=== PATIENT | male | born 1980 | race Caucasian/White ===

== ENCOUNTER 2017-06-27 10:50 | Emergency (ER) | payer BC, OTHER ==
[2017-06-27 11:08] VITALS: BP 144/94
[2017-06-27] MEDS ORDERED: Sodium Chloride 0.9% 1,000 ML IV ONE (11:18)
--- NOTE | 2017-06-27 11:18 | EDM.PDOC ---
ED HPI GENERAL MEDICAL PROBLEM - General Chief Complaint: Lower Extremity Injury/Pain Stated Complaint: LEGS HURT Time Seen by Provider: 06/27/17 11:05 Source of Information: Reports: Patient History Limitations: Reports: No Limitations - History of Present Illness INITIAL COMMENTS - FREE TEXT/NARRATIVE: HISTORY AND PHYSICAL: History of present illness: [Patient comes to the emergency room complaining of bilateral leg pain redness and swelling.] Review of systems: As per history of present illness and below otherwise all systems reviewed and negative. Past medical history: As per history of present illness and as reviewed below otherwise noncontributory. Surgical history: As per history of present illness and as reviewed below otherwise noncontributory. Social history: No reported history of drug or alcohol abuse. Family history: As per history of present illness and as reviewed below otherwise noncontributory. Physical exam: HEENT: Atraumatic, normocephalic, pupils reactive, negative for conjunctival pallor or scleral icterus, mucous membranes moist, throat clear, neck supple, nontender, trachea midline. Lungs: Clear to auscultation, breath sounds equal bilaterally, chest nontender. Heart: S1S2, regular, negative for clicks, rubs, or JVD. Abdomen: Soft, nondistended, nontender. Negative for masses or hepatosplenomegaly. Negative for costovertebral tenderness. Pelvis: Stable nontender. Genitourinary: Deferred. Rectal: Deferred. Extremities: Atraumatic, negative for cords or calf pain. Neurovascular unremarkable. Neuro: Awake, alert, oriented. Cranial nerves II through XII unremarkable. Cerebellum unremarkable. Motor and sensory unremarkable throughout. Exam nonfocal. Diagnostics: [] Therapeutics: [] Impression: [] Plan: [] Definitive disposition and diagnosis as appropriate pending reevaluation and review of above. Bilateral Leg Pain Score (Numeric/FACES): 9 - Related Data Allergies Allergy/AdvReac Type Severity Reaction Status Date / Time cephalexin [From Keflex] Allergy Rash Verified 06/27/17 11:08 Home Meds: Home Meds . [No Known Home Meds] 11/06/16 [History] Past Medical History HEENT History: Reports: None Cardiovascular History: Reports: None Respiratory History: Reports: None Gastrointestinal History: Reports: None Genitourinary History: Reports: None Musculoskeletal History: Reports: Other (See Below) Other Musculoskeletal History: R shoulder traumatic dislocation Neurological History: Reports: None Psychiatric History: Reports: None Endocrine/Metabolic History: Reports: None Dermatologic History: Reports: None - Infectious Disease History Infectious Disease History: Reports: None - Past Surgical History Musculoskeletal Surgical History: Reports: Other (See Below) Social & Family History - Tobacco Use Smoking Status *Q: Light Tobacco Smoker Years of Tobacco use: 10 Packs/Tins Daily: 0.1 - Caffeine Use Caffeine Use: Reports: Coffee, Energy Drinks - Recreational Drug Use Recreational Drug Use: No Course - Vital Signs Last Recorded V/S: Last Vital Signs Temp 97.0 F 06/27/17 11:02 Pulse 94 06/27/17 11:02 Resp 20 06/27/17 11:02 BP 144/94 H 06/27/17 11:02 Pulse Ox 96 06/27/17 11:02 - Orders/Labs/Meds Orders: Active Orders 24 hr Category Date Time Status CBC WITH AUTO DIFF [HEME] Stat Lab 06/27/17 11:12 Ordered COMPREHENSIVE METABOLIC PN,CMP [CHEM] Stat Lab 06/27/17 11:12 Ordered CULTURE BLOOD [BC] Stat Lab 06/27/17 11:13 Ordered CULTURE BLOOD [BC] Stat Lab 06/27/17 11:13 Ordered LACTIC ACID,WHOLE BLOOD [BG] Stat Lab 06/27/17 11:12 Ordered UA W/MICROSCOPIC [URIN] Stat Lab 06/27/17 11:12 Uncollected Blood Culture x2 Reflex Set [OM.PC] Stat Oth 06/27/17 11:12 Ordered Departure - Discharge Information Referrals: PCP,None [Primary Care Provider] - - My Orders Last 24 Hours: My Active Orders 06/27/17 11:12 CBC WITH AUTO DIFF [HEME] Stat COMPREHENSIVE METABOLIC PN,CMP [CHEM] Stat LACTIC ACID,WHOLE BLOOD [BG] Stat UA W/MICROSCOPIC [URIN] Stat Blood Culture x2 Reflex Set [OM.PC] Stat 06/27/17 11:13 CULTURE BLOOD [BC] Stat CULTURE BLOOD [BC] Stat - Assessment/Plan Last 24 Hours: My Active Orders 06/27/17 11:12 CBC WITH AUTO DIFF [HEME] Stat COMPREHENSIVE METABOLIC PN,CMP [CHEM] Stat LACTIC ACID,WHOLE BLOOD [BG] Stat UA W/MICROSCOPIC [URIN] Stat Blood Culture x2 Reflex Set [OM.PC] Stat 06/27/17 11:13 CULTURE BLOOD [BC] Stat CULTURE BLOOD [BC] Stat
== END 2017-06-27 11:16 | disposition left against medical advice (07) ==
LOC: MW.ED 10:50 → EDUNIT# 10:50 → MW.ED 11:15
DX: Z53.21 Procedure and treatment not carried out due to patient leaving prior to being seen by health care provider (principal)

== ENCOUNTER 2017-09-15 20:13 | Inpatient (IN) | payer BC ==
[2017-09-15] MEDS ORDERED: Sodium Chloride 0.9% 1,000 ML IV ONE ×2 (20:28→21:24)
--- NOTE | 2017-09-15 20:31 | EDM.PDOC ---
ED HPI GENERAL MEDICAL PROBLEM - General Chief Complaint: Lower Extremity Injury/Pain Stated Complaint: PAIN RT LEG Time Seen by Provider: 09/15/17 20:30 Source of Information: Reports: Patient History Limitations: Reports: No Limitations - History of Present Illness INITIAL COMMENTS - FREE TEXT/NARRATIVE: History of present illness: [36-year-old male comes in complaining of wounds to bilateral lower legs. 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 This is the second or third such occasion the patient has experienced this and he attributes it directly to these boots each and every time.] Review of systems: As per history of present illness and below otherwise all systems reviewed and negative. Past medical history: As per history of present illness and as reviewed below otherwise noncontributory. Surgical history: As per history of present illness and as reviewed below otherwise noncontributory. Social history: No reported history of drug or alcohol abuse. Family history: As per history of present illness and as reviewed below otherwise noncontributory. Physical exam: HEENT: Atraumatic, normocephalic, pupils reactive, negative for conjunctival pallor or scleral icterus, mucous membranes moist, throat clear, neck supple, nontender, trachea midline. Lungs: Clear to auscultation, breath sounds equal bilaterally, chest nontender. Heart: S1S2, regular, negative for clicks, rubs, or JVD. Abdomen: Soft, nondistended, nontender. Negative for masses or hepatosplenomegaly. Negative for costovertebral tenderness. Pelvis: Stable nontender. Genitourinary: Deferred. Rectal: Deferred. Extremities: Bilateral lower extremities noted to be cellulitic, edematous and weeping. Pulses are appreciated bilaterally both DP and PT but there are in fact open areas where the skin has blistered and sloughed off. Neurovascular unremarkable. Neuro: Awake, alert, oriented. Cranial nerves II through XII unremarkable. Cerebellum unremarkable. Motor and sensory unremarkable throughout. Exam nonfocal. Spoke with Dr. Feliz who agreed the patient would be benefited from inpatient admission Diagnostics: [CBC, CMP, amylase, lipase, lactic acid] Therapeutics: [IV fluid, vancomycin 1 g] Impression: [Cellulitis bilateral lower extremities] Plan: [Admit] Definitive disposition and diagnosis as appropriate pending reevaluation and review of above. both leg Pain Score (Numeric/FACES): 9 - Related Data Allergies Allergy/AdvReac Type Severity Reaction Status Date / Time No Known Allergies Allergy Verified 09/15/17 20:21 Home Meds: Home Meds . [No Known Home Meds] 09/15/17 [History] Past Medical History - Past Health History Medical/Surgical History: Denies Medical/Surgical History Cardiovascular History: Reports: None Respiratory History: Reports: None Gastrointestinal History: Reports: Diverticulosis Other Gastrointestinal History: Diverticulitis Endocrine/Metabolic History: Reports: Obesity/BMI 30+. Denies: Diabetes, Type II, Hypothyroidism - Past Surgical History GI Surgical History: Reports: None Social & Family History - Family History Family Medical History: Noncontributory - Tobacco Use Smoking Status *Q: Current Every Day Smoker Years of Tobacco use: 3 Packs/Tins Daily: 1 Second Hand Smoke Exposure: No - Caffeine Use Caffeine Use: Reports: Coffee, Energy Drinks Caffeine Use Comment: 1 cup "every couple of days" - Alcohol Use Days Per Week of Alcohol Use: 1 Number of Drinks Per Day: 0 Total Drinks Per Week: 0 - Recreational Drug Use Recreational Drug Use: No - Living Situation & Occupation Occupation: Employed Review of Systems - Review of Systems Review Of Systems: See Below (History of present illness) ED EXAM, GENERAL - Physical Exam Exam: See Below (See history of present illness) Course - Vital Signs Last Recorded V/S: Last Vital Signs Temp 36.5 C 09/15/17 20:13 Pulse 100 09/15/17 20:13 Resp 18 09/15/17 20:13 BP 125/88 09/15/17 20:13 Pulse Ox 97 09/15/17 20:13 - Orders/Labs/Meds Orders: Active Orders 24 hr Category Date Time Status Sodium Chloride 0.9% [Normal Saline] 1,000 ml Med 09/15/17 20:28 Active IV STAT Sodium Chloride 0.9% [Normal Saline] 1,000 ml Med 09/15/17 21:24 Ordered IV STAT Vancomycin [Vancocin] 1 gm Med 09/15/17 21:24 Ordered Sodium Chloride 0.9% [Normal Saline] 250 ml IV ONETIME Medication Orders Sodium Chloride (Normal Saline) 1,000 mls @ 999 mls/hr IV STAT ONE Stop: 09/15/17 21:28 Last Admin: 09/15/17 20:40 Dose: 999 mls/hr Vancomycin HCl 1 gm/ Sodium (Chloride) 250 mls @ 250 mls/hr IV ONETIME ONE Stop: 09/15/17 22:23 Labs: Laboratory Tests 09/15/17 09/15/17 09/15/17 Range/Units 20:40 20:40 20:40 WBC 13.06 H (4.0-11.0) K/uL RBC 5.19 (4.50-5.90) M/uL Hgb 16.5 (13.0-17.0) g/dL Hct 47.8 (38.0-50.0) % MCV 92.1 (80.0-98.0) fL MCH 31.8 (27.0-32.0) pg MCHC 34.5 (31.0-37.0) g/dL RDW Std Deviation 46.2 (28.0-62.0) fl RDW Coeff of Shad 14 (11.0-15.0) % Plt Count 285 (150-400) K/uL MPV 10.10 (7.40-12.00) fL Neut % (Auto) 60.2 (48.0-80.0) % Lymph % (Auto) 22.6 (16.0-40.0) % [place] % (Auto) 11.8 (0.0-15.0) % Eos % (Auto) 5.1 (0.0-7.0) % Baso % (Auto) 0.3 (0.0-1.5) % Neut # (Auto) 7.9 H (1.4-5.7) K/uL Lymph # (Auto) 3.0 H (0.6-2.4) K/uL [place] # (Auto) 1.5 H (0.0-0.8) K/uL Eos # (Auto) 0.7 (0.0-0.7) K/uL Baso # (Auto) 0.0 (0.0-0.1) K/uL Nucleated RBC % 0.0 /100WBC Nucleated RBCs # 0 K/uL Lactate 1.4 (0.20-2.00) mmol/L Sodium 140 (136-146) mmol/L Potassium 4.0 (3.5-5.1) mmol/L Chloride 103 (98-110) mmol/L Carbon Dioxide 26 (21-31) mmol/L BUN 12 (6.0-23.0) mg/dL Creatinine 0.9 (0.6-1.5) mg/dL Est Cr Clr Drug Dosing TNP Estimated GFR (MDRD) > 60.0 ml/min Glucose 98 (60-110) mg/dL Calcium 8.8 (8.8-10.8) mg/dL Total Bilirubin 0.8 (0.1-1.5) mg/dL AST 17 (5-40) IU/L ALT 22 (8-54) IU/L Alkaline Phosphatase 79 (40-150) Total Protein 6.8 (6.0-8.0) g/dL Albumin 3.8 (3.5-5.0) g/dL Globulin 3.0 (2.0-3.5) g/dL Albumin/Globulin Ratio 1.3 (1.3-2.8) Amylase 33 (10-90) U/L Lipase 10 (7-80) U/L Meds: Medications Generic Name Dose Route Start Last Admin Trade Name Freq PRN Reason Stop Dose Admin Sodium Chloride 1,000 mls @ 999 mls/hr 09/15/17 20:28 09/15/17 20:40 Normal Saline IV 09/15/17 21:28 999 mls/hr STAT ONE Administration Vancomycin HCl 1 gm/ Sodium 250 mls @ 250 mls/hr 09/15/17 21:24 Chloride IV 09/15/17 22:23 ONETIME ONE Departure - Departure Time of Disposition: 21:25 Disposition: Admitted As Inpatient 68 Condition: Good Clinical Impression: Bilateral cellulitis of lower leg - Discharge Information Referrals: PCP,None [Primary Care Provider] - Forms: ED Department Discharge - My Orders Last 24 Hours: My Active Orders 09/15/17 20:28 Sodium Chloride 0.9% [Normal Saline] 1,000 ml IV STAT 09/15/17 21:24 Sodium Chloride 0.9% [Normal Saline] 1,000 ml IV STAT Vancomycin [Vancocin] 1 gm Sodium Chloride 0.9% [Normal Saline] 250 ml IV ONETIME - Assessment/Plan Last 24 Hours: My Active Orders 09/15/17 20:28 Sodium Chloride 0.9% [Normal Saline] 1,000 ml IV STAT 09/15/17 21:24 Sodium Chloride 0.9% [Normal Saline] 1,000 ml IV STAT Vancomycin [Vancocin] 1 gm Sodium Chloride 0.9% [Normal Saline] 250 ml IV ONETIME
[2017-09-15 21:08] LABS: CHLORIDE,CL 103 mmol/L (98-110); SODIUM,NA 140 mmol/L (136-146)
[2017-09-15] MEDS ORDERED: Ondansetron 4 MG/2 ML SDV IVPUSH ONE (21:36)
[2017-09-15] MEDS ORDERED: HYDROmorphone 2 MG/ML Syringe IVPUSH ONE (21:36)
[2017-09-15] MEDS ORDERED: Diphtheria,Pertussis(Acell),Tetanus Vaccine 0.5 ML Syringe IM ONE (21:48)
[2017-09-15] MEDS ORDERED: Temazepam 15 MG Cap PO PRN (22:37)
[2017-09-15] MEDS ORDERED: Ondansetron 4 MG/2 ML SDV IVPUSH PRN (22:37)
[2017-09-15] MEDS: Piperacillin/Tazobactam 3.375 GM in Sodium Chloride 0.9% 50 ML IV SCH (23:19)
[2017-09-16] MEDS ORDERED: Vancomycin 2 GM in Sodium Chloride 0.9% 500 ML IV SCH ×2
[2017-09-16] MEDS: Morphine 4 MG/ML Syringe IVPUSH PRN ×6 (01:48→22:52)
[2017-09-16] MEDS: Piperacillin/Tazobactam 3.375 GM in Sodium Chloride 0.9% 50 ML IV SCH ×4 (04:21→22:42)
[2017-09-16 05:47] LABS: CHLORIDE,CL 107 mmol/L (98-110); SODIUM,NA 139 mmol/L (136-146)
[2017-09-16] MEDS ORDERED: Vancomycin 1.5 GM in Sodium Chloride 0.9% 500 ML IV SCH ×4 (07:50→08:00)
[2017-09-16] MEDS ORDERED: FLU Vacc QS 2017-18 (36mos UP)/PF 60 MCG/0.5 ML Syringe IM ONE (10:00)
[2017-09-16] MEDS: Vancomycin 1.5 GM in Sodium Chloride 0.9% 500 ML IV SCH ×2 (10:40→17:40)
--- NOTE | 2017-09-16 13:15 | PCM.HP ---
H&P History of Present Illness - General Date of Service: 09/16/17 Source of Information: Patient History Limitations: Reports: No Limitations - History of Present Illness Initial Comments - Free Text/Narative: Cell 36-year-old male with no significant past medical history that presented to the emergency department combining of bilateral leg swelling and redness and discomfort. As per the patient, he tells me that he has been wearing these new leather boots at work for prolonged periods of time, he tells me that he has been wearing these for 16-18 hour shifts. He noticed some discomfort and took issues often noticed a significant amount of redness and felt he needed to get checked out. He tells me that this happened a couple months ago and it resulted in him being admitted to the hospital for IV antibiotics. He also tells me that he was given prednisone by his primary care provider afterwards that seemed to help as well with the redness. Currently, he denies any fevers, chills, nausea or vomiting. He denies any pain aside from his legs. As per the ER physician, was believed to be cellulitic and required IV antibiotics so he was admitted. ER course IV vancomycin 1 Tetanus vaccine Zofran 1 IV IV normal saline bolus 1 CBC indicates a leukocytosis both leg Pain Score (Numeric/FACES): 6 - Related Data Allergies/Adverse Reactions: Allergies Allergy/AdvReac Type Severity Reaction Status Date / Time No Known Allergies Allergy Verified 09/15/17 20:21 Home Medications: Home Meds . [No Known Home Meds] 09/15/17 [History] Past Medical History - Past Health History Medical/Surgical History: Denies Medical/Surgical History Cardiovascular History: Reports: None Respiratory History: Reports: None Gastrointestinal History: Reports: Diverticulosis Other Gastrointestinal History: Diverticulitis Endocrine/Metabolic History: Reports: Obesity/BMI 30+ Dermatologic History: Reports: Cellulitis - Past Surgical History GI Surgical History: Reports: None Social & Family History - Family History Family Medical History: Noncontributory - Tobacco Use Smoking Status *Q: Current Every Day Smoker Years of Tobacco use: 3 Packs/Tins Daily: 0.5 Used Tobacco, but Quit: No Second Hand Smoke Exposure: No - Caffeine Use Caffeine Use: Reports: Coffee, Energy Drinks, Soda Caffeine Use Comment: 1 cup "every couple of days" - Alcohol Use Days Per Week of Alcohol Use: 1 Number of Drinks Per Day: 0 Total Drinks Per Week: 0 - Recreational Drug Use Recreational Drug Use: No - Living Situation & Occupation Occupation: Employed H&P Review of Systems - Review of Systems: Review Of Systems: See Below General: Reports: No Symptoms HEENT: Reports: No Symptoms Pulmonary: Reports: No Symptoms Cardiovascular: Reports: No Symptoms Gastrointestinal: Reports: No Symptoms Genitourinary: Reports: No Symptoms Musculoskeletal: Reports: Other (See history of present illness. Denies any joint pain.) Skin: Reports: Other (See history of present illness. The rash appears to be confined to the legs bilaterally.) Psychiatric: Reports: No Symptoms Neurological: Reports: No Symptoms Hematologic/Lymphatic: Reports: No Symptoms Immunologic: Reports: No Symptoms Exam - Exam Exam: See Below - Vital Signs Vital Signs: Last Vital Signs Temp 37.6 C 09/16/17 12:03 Pulse 110 H 09/16/17 12:03 Resp 14 09/16/17 12:03 BP 121/67 09/16/17 12:03 Pulse Ox 90 L 09/16/17 12:03 Weight: 122.9 kg - Exam General: Alert, Oriented HEENT: Conjunctiva Clear, EOMI Neck: Supple, Trachea Midline Lungs: Clear to Auscultation, Normal Respiratory Effort Cardiovascular: Regular Rate, Regular Rhythm, Normal S1, Normal S2 GI/Abdominal Exam: Normal Bowel Sounds, Soft, Non-Tender, No Organomegaly, No Distention Extremities: Other (Cellulitic, erythematous, indurated lower extremity is bilaterally. There does not appear to be any active drainage. A pen line drawn by the ER physician indicates that the erythema has not spread beyond the line. There does not appear to be any abscess formation the need straining) Peripheral Pulses: 2+: Dorsalis Pedis (L), Dorsalis Pedis (R) Skin: Other (see extremities exam) Neuro Extensive - Mental Status: Alert, Oriented x3 - Patient Data Lab Results Last 24 hrs: Laboratory Results - last 24 hr 09/16/17 09/16/17 09/16/17 Range/Units 04:52 04:52 05:38 WBC 12.74 H (4.0-11.0) K/uL RBC 4.69 (4.50-5.90) M/uL Hgb 14.7 (13.0-17.0) g/dL Hct 43.9 (38.0-50.0) % MCV 93.6 (80.0-98.0) fL MCH 31.3 (27.0-32.0) pg MCHC 33.5 (31.0-37.0) g/dL RDW Std Deviation 47.1 (28.0-62.0) fl RDW Coeff of Shad 14 (11.0-15.0) % Plt Count 253 (150-400) K/uL MPV 10.40 (7.40-12.00) fL Neut % (Auto) 68.1 (48.0-80.0) % Lymph % (Auto) 15.6 L (16.0-40.0) % [place] % (Auto) 11.3 (0.0-15.0) % Eos % (Auto) 4.7 (0.0-7.0) % Baso % (Auto) 0.3 (0.0-1.5) % Neut # (Auto) 8.7 H (1.4-5.7) K/uL Lymph # (Auto) 2.0 (0.6-2.4) K/uL [place] # (Auto) 1.4 H (0.0-0.8) K/uL Eos # (Auto) 0.6 (0.0-0.7) K/uL Baso # (Auto) 0.0 (0.0-0.1) K/uL Nucleated RBC % 0.0 /100WBC Nucleated RBCs # 0 K/uL Sodium 139 (136-146) mmol/L Potassium 4.0 (3.5-5.1) mmol/L Chloride 107 (98-110) mmol/L Carbon Dioxide 24 (21-31) mmol/L BUN 10 (6.0-23.0) mg/dL Creatinine 0.8 (0.6-1.5) mg/dL Est Cr Clr Drug Dosing 121.34 mL/min Estimated GFR (MDRD) > 60.0 ml/min Glucose 98 (60-110) mg/dL POC Glucose 104 (60-110) mg/dL Calcium 7.5 L (8.8-10.8) mg/dL Result Diagrams: 09/16/17 04:52 09/16/17 04:52 *Q Meaningful Use (ADM) - VTE *Q VTE Criteria *Q: - Stroke *Q Stroke Criteria *Q: - AMI *Q AMI Criteria *Q: Problem List Initiated/Reviewed/Updated: Yes Orders Last 24hrs: Active Orders 24 hr Category Date Time Status Vaccines to be Administered [RC] PER UNIT ROUTINE Care 09/15/17 21:48 Active Regular Diet [DIET] Diet 09/16/17 Breakfast Active BASIC METABOLIC PANEL,BMP [CHEM] DAILY Lab 09/17/17 05:11 Ordered BASIC METABOLIC PANEL,BMP [CHEM] DAILY Lab 09/18/17 05:11 Ordered BASIC METABOLIC PANEL,BMP [CHEM] DAILY Lab 09/19/17 05:11 Ordered CBC WITH AUTO DIFF [HEME] DAILY Lab 09/17/17 05:11 Ordered CBC WITH AUTO DIFF [HEME] DAILY Lab 09/18/17 05:11 Ordered CBC WITH AUTO DIFF [HEME] DAILY Lab 09/19/17 05:11 Ordered CULTURE WOUND [RM] Routine Lab 09/15/17 23:00 Received CULTURE WOUND [RM] Routine Lab 09/15/17 23:00 Received VANCOMYCIN TROUGH [CHEM] Timed Lab 09/17/17 09:30 Ordered Acetaminophen [Tylenol] Med 09/16/17 09:29 Active 650 mg PO Q4H PRN Morphine Med 09/15/17 22:37 Active 4 mg IVPUSH Q1H PRN Ondansetron [Zofran] Med 09/15/17 22:37 Active 4 mg IVPUSH Q4H PRN Piperacillin/Tazobactam [Piperacil-Tazobact] 3.375 gm Med 09/15/17 23:00 Active Sodium Chloride 0.9% [Normal Saline] 50 ml IV Q6H Temazepam [Restoril] Med 09/15/17 22:37 Active 15 mg PO BEDTIME PRN Vancomycin 1.5 gm Med 09/16/17 10:00 Active Sodium Chloride 0.9% [Normal Saline] 500 ml IV Q8H Vancomycin Pharmacy to Dose [Pharmacy to Dose - Med 09/15/17 22:45 Active Vancomycin] 1 dose .XX ASDIRECTED Medication Orders Acetaminophen (Tylenol) 650 mg PO Q4H PRN PRN Reason: Fever Piperacillin Sod/Tazobactam (Sod 3.375 gm/ Sodium Chloride) 50 mls @ 100 mls/ hr IV Q6H [facility] Last Admin: 09/16/17 12:28 Dose: 100 mls/hr Infusion: 09/16/17 04:51 Dose: 100 mls/hr Admin: 09/16/17 04:21 Dose: 100 mls/hr Infusion: 09/15/17 23:50 Dose: 100 mls/hr Admin: 09/15/17 23:19 Dose: 100 mls/hr Vancomycin HCl 1.5 gm/ Sodium (Chloride) 500 mls @ 333.333 mls/hr IV Q8H [facility] Last Admin: 09/16/17 10:40 Dose: 333.333 mls/hr Morphine Sulfate (Morphine) 4 mg IVPUSH Q1H PRN PRN Reason: Pain Last Admin: 09/16/17 08:05 Dose: 4 mg Admin: 09/16/17 04:18 Dose: 4 mg Admin: 09/16/17 01:48 Dose: 4 mg Ondansetron HCl (Zofran) 4 mg IVPUSH Q4H PRN PRN Reason: Nausea/Vomiting Temazepam (Restoril) 15 mg PO BEDTIME PRN PRN Reason: Insomnia Vancomycin HCl (Pharmacy To Dose - Vancomycin) 1 dose .XX ASDIRECTED [facility] Assessment/Plan Comment:: Assessment: #1. Cellulitis of the legs bilaterally #2. Leukocytosis secondary to #1 #3. History of bilateral leg cellulitis #4. History of contact dermatitis 5. History of diverticulosis Plan: #1. Admit to the floor as an inpatient #2. Vital signs per floor routine #3. I's and O's floor routine #4. Vancomycin, Zosyn IV #5. Morphine 4 mg every hour #6. Tylenol 650 mg every 4 hours when necessary for pain and fever #7. Reevaluate tomorrow morning, CBC and BMP ordered
[2017-09-17] MEDS: Vancomycin 1.5 GM in Sodium Chloride 0.9% 500 ML IV SCH ×2 (01:41→10:40)
[2017-09-17] MEDS: Morphine 4 MG/ML Syringe IVPUSH PRN ×3 (03:47→12:32)
[2017-09-17] MEDS: Piperacillin/Tazobactam 3.375 GM in Sodium Chloride 0.9% 50 ML IV SCH ×2 (05:30→10:08)
[2017-09-17 06:33] LABS: CHLORIDE,CL 105 mmol/L (98-110); SODIUM,NA 136 mmol/L (136-146)
--- NOTE | 2017-09-17 13:43 | PCM.PN ---
- General Info Date of Service: 09/17/17 Subjective Update: 36-year-old male in service of bilateral leg cellulitis. The patient tells me that his pain has been stable. He still finds it difficult to ambulate without the use of a walker secondary to the pain. However, while in bed, the pain is stable and controlled. He denies any fevers or chills. He denies any new symptoms. He feels that the rash is getting better. - Review of Systems General: Reports: Other (See history of present illness) - Patient Data Vitals - Most Recent: Last Vital Signs Temp 36.9 C 09/17/17 12:00 Pulse 102 H 09/17/17 12:00 Resp 18 09/17/17 12:00 BP 132/67 09/17/17 12:00 Pulse Ox 91 L 09/17/17 12:00 Weight - Most Recent: 122.9 kg I&O - Last 24 Hours: Intake & Output 09/16/17 09/17/17 09/17/17 22:59 06:59 14:59 Intake Total 1050 1250 50 Output Total 1000 1050 Balance 50 200 50 Lab Results Last 24 Hours: Laboratory Results - last 24 hr 09/17/17 09/17/17 09/17/17 Range/Units 05:15 05:15 09:27 WBC 11.36 H (4.0-11.0) K/uL RBC 4.58 (4.50-5.90) M/uL Hgb 14.4 (13.0-17.0) g/dL Hct 43.0 (38.0-50.0) % MCV 93.9 (80.0-98.0) fL MCH 31.4 (27.0-32.0) pg MCHC 33.5 (31.0-37.0) g/dL RDW Std Deviation 47.7 (28.0-62.0) fl RDW Coeff of Shad 14 (11.0-15.0) % Plt Count 254 (150-400) K/uL MPV 10.40 (7.40-12.00) fL Neut % (Auto) 68.4 (48.0-80.0) % Lymph % (Auto) 16.1 (16.0-40.0) % [place] % (Auto) 11.2 (0.0-15.0) % Eos % (Auto) 3.9 (0.0-7.0) % Baso % (Auto) 0.4 (0.0-1.5) % Neut # (Auto) 7.8 H (1.4-5.7) K/uL Lymph # (Auto) 1.8 (0.6-2.4) K/uL [place] # (Auto) 1.3 H (0.0-0.8) K/uL Eos # (Auto) 0.4 (0.0-0.7) K/uL Baso # (Auto) 0.1 (0.0-0.1) K/uL Nucleated RBC % 0.0 /100WBC Nucleated RBCs # 0 K/uL Sodium 136 (136-146) mmol/L Potassium 4.3 (3.5-5.1) mmol/L Chloride 105 (98-110) mmol/L Carbon Dioxide 23 (21-31) mmol/L BUN 8 (6.0-23.0) mg/dL Creatinine 0.7 (0.6-1.5) mg/dL Est Cr Clr Drug Dosing 138.68 mL/min Estimated GFR (MDRD) > 60.0 ml/min Glucose 90 (60-110) mg/dL Calcium 7.9 L (8.8-10.8) mg/dL Vancomycin Trough 10.9 (5-15) ug/mL Nitin Results Last 24 Hours: Microbiology 09/15/17 23:00 Wound Culture - Final Leg, Right (Mrsa) Staphylococcus Aureus Skin Shama 09/15/17 23:00 Wound Culture - Final Leg, Left (Mrsa) Staphylococcus Aureus Skin Shama Med Orders - Current: Current Medications Acetaminophen (Tylenol) 650 mg PO Q4H PRN PRN Reason: Fever Piperacillin Sod/Tazobactam (Sod 3.375 gm/ Sodium Chloride) 50 mls @ 100 mls/ hr IV Q6H MARIE Last Admin: 09/17/17 10:08 Dose: 100 mls/hr Vancomycin HCl 1.5 gm/ Sodium (Chloride) 500 mls @ 333.333 mls/hr IV Q8H MARIE Last Admin: 09/17/17 10:40 Dose: 333.333 mls/hr Morphine Sulfate (Morphine) 4 mg IVPUSH Q1H PRN PRN Reason: Pain Last Admin: 09/17/17 12:32 Dose: 4 mg Ondansetron HCl (Zofran) 4 mg IVPUSH Q4H PRN PRN Reason: Nausea/Vomiting Temazepam (Restoril) 15 mg PO BEDTIME PRN PRN Reason: Insomnia Vancomycin HCl (Pharmacy To Dose - Vancomycin) 1 dose .XX ASDIRECTED [facility] Discontinued Medications Diphtheria/Tetanus/Acell Pertussis (Adacel) 0.5 ml IM .ONCE ONE Stop: 09/15/17 21:49 Last Admin: 09/15/17 21:55 Dose: 0.5 ml Hydromorphone HCl (Dilaudid) 2 mg IVPUSH ONETIME ONE Stop: 09/15/17 21:37 Last Admin: 09/15/17 21:41 Dose: 2 mg Sodium Chloride (Normal Saline) 1,000 mls @ 999 mls/hr IV STAT ONE Stop: 09/15/17 21:28 Last Admin: 09/15/17 20:40 Dose: 999 mls/hr Vancomycin HCl 1 gm/ Sodium (Chloride) 250 mls @ 250 mls/hr IV ONETIME ONE Stop: 09/15/17 22:23 Last Infusion: 09/15/17 22:40 Dose: Infused Sodium Chloride (Normal Saline) 1,000 mls @ 999 mls/hr IV STAT ONE Stop: 09/15/17 22:24 Last Infusion: 09/15/17 23:10 Dose: Infused Vancomycin HCl 1.5 gm/ Sodium (Chloride) 500 mls @ 333.333 mls/hr IV Q8H [facility] Vancomycin HCl 2 gm/ Sodium (Chloride) 500 mls @ 333.333 mls/hr IV Q8H [facility] Last Infusion: 09/16/17 03:25 Dose: Infused Vancomycin HCl 1.5 gm/ Sodium (Chloride) 500 mls @ 333.333 mls/hr IV Q8H [facility] Influenza Virus Vaccine (Pharmacy To Dose - Influenza Vaccine) 1 each IM ONETIME ONE Stop: 09/15/17 22:23 Influenza Virus Vaccine (Fluarix Quad 9479-2497) 60 mcg IM .ONCE ONE Stop: 09/16/17 10:01 Last Admin: 09/16/17 10:27 Dose: 60 mcg Ondansetron HCl (Zofran) 4 mg IVPUSH ONETIME ONE Stop: 09/15/17 21:37 Last Admin: 09/15/17 21:40 Dose: 4 mg - Exam General: Alert, Oriented Lungs: Clear to Auscultation, Normal Respiratory Effort Cardiovascular: Regular Rate, Regular Rhythm GI/Abdominal Exam: Normal Bowel Sounds, Soft, Non-Tender Skin: Other (It does appear to be a decrease in amount of erythema. No ascending erythema beyond the pen line. The wound does however appear to be cellulitic without any abscess formation.) - Problem List Review Problem List Initiated/Reviewed/Updated: Yes - My Orders Last 24 Hours: My Active Orders 09/17/17 08:57 Consult to Physical Therapy [PT Evaluation and Treatment] [CONS] Routine - Plan Plan:: Assessment: #1. Cellulitis of the legs bilaterally #2. Leukocytosis secondary to #1 #3. History of bilateral leg cellulitis #4. History of contact dermatitis 5. History of diverticulosis Plan: #1. Switch to daptomycin IV given sensitivities for wound culture. Wound culture positive for MRSA #2. Wound care management ordered for consult. We'll follow-up on the recommendations given.
[2017-09-17] MEDS ORDERED: DAPTOmycin 500 MG Vial IV SCH (13:45)
[2017-09-17] MEDS: DAPTOmycin 500 MG in Sodium Chloride 0.9% 10 ML IV SCH (14:48)
[2017-09-17] MEDS: traMADol 50 MG Tab PO PRN (15:13)
[2017-09-17] MEDS: Morphine 2 MG/ML Syringe IVPUSH PRN ×2 (19:17→22:09)
[2017-09-18] MEDS: Acetaminophen 325 MG Tab PO PRN ×2 (03:42→16:21)
[2017-09-18 06:05] LABS: CHLORIDE,CL 105 mmol/L (98-110); SODIUM,NA 139 mmol/L (136-146)
[2017-09-18] MEDS: Morphine 2 MG/ML Syringe IVPUSH PRN ×2 (08:17→14:11)
[2017-09-18] MEDS: Sodium Chloride 0.9% 1,000 ML IV SCH (11:13)
--- NOTE | 2017-09-18 12:05 | PCM.PN ---
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 When I initially went to go see this patient in the morning, he told me that he felt a lot better in terms of his rash. He tells me that his pain is under control as well. We initially talked about having him go home today. However on reassessment during morning rounds with the attending, patient had a bout of feeling hot and a temperature was checked which indicated a temperature of 100.9. Patient is also very nauseous and lightheaded. He denies any shortness of breath or chest pain or abdominal pain. He had no other symptoms. At the time of the fever blood cultures were obtained. IV Zofran was given 1 time. Patient also been started on fluids 125 mL an hour of normal saline. - Review of Systems General: Reports: Other (See history of present illness) - Patient Data Vitals - Most Recent: Last Vital Signs Temp 38.1 C 09/18/17 10:41 Pulse 109 H 09/18/17 08:00 Resp 18 09/18/17 08:00 BP 117/66 09/18/17 08:00 Pulse Ox 90 L 09/18/17 08:00 Weight - Most Recent: 122.9 kg I&O - Last 24 Hours: Intake & Output 09/17/17 09/18/17 09/18/17 22:59 06:59 14:59 Intake Total 690 800 Output Total 1075 1150 Balance -385 -350 Lab Results Last 24 Hours: Laboratory Results - last 24 hr 09/18/17 09/18/17 Range/Units 04:54 04:54 WBC 10.69 (4.0-11.0) K/uL RBC 4.60 (4.50-5.90) M/uL Hgb 14.4 (13.0-17.0) g/dL Hct 42.5 (38.0-50.0) % MCV 92.4 (80.0-98.0) fL MCH 31.3 (27.0-32.0) pg MCHC 33.9 (31.0-37.0) g/dL RDW Std Deviation 45.4 (28.0-62.0) fl RDW Coeff of Shad 14 (11.0-15.0) % Plt Count 254 (150-400) K/uL MPV 10.20 (7.40-12.00) fL Neut % (Auto) 66.0 (48.0-80.0) % Lymph % (Auto) 19.9 (16.0-40.0) % [place] % (Auto) 9.4 (0.0-15.0) % Eos % (Auto) 4.0 (0.0-7.0) % Baso % (Auto) 0.7 (0.0-1.5) % Neut # (Auto) 7.1 H (1.4-5.7) K/uL Lymph # (Auto) 2.1 (0.6-2.4) K/uL [place] # (Auto) 1.0 H (0.0-0.8) K/uL Eos # (Auto) 0.4 (0.0-0.7) K/uL Baso # (Auto) 0.1 (0.0-0.1) K/uL Nucleated RBC % 0.0 /100WBC Nucleated RBCs # 0 K/uL Sodium 139 (136-146) mmol/L Potassium 3.8 (3.5-5.1) mmol/L Chloride 105 (98-110) mmol/L Carbon Dioxide 27 (21-31) mmol/L BUN 9 (6.0-23.0) mg/dL Creatinine 0.7 (0.6-1.5) mg/dL Est Cr Clr Drug Dosing 138.68 mL/min Estimated GFR (MDRD) > 60.0 ml/min Glucose 106 (60-110) mg/dL Calcium 8.1 L (8.8-10.8) mg/dL Nitin Results Last 24 Hours: Microbiology 09/15/17 23:00 Wound Culture - Final Leg, Right (Mrsa) Staphylococcus Aureus Skin Shama 09/15/17 23:00 Wound Culture - Final Leg, Left (Mrsa) Staphylococcus Aureus Skin Shama Med Orders - Current: Current Medications Acetaminophen (Tylenol) 650 mg PO Q4H PRN PRN Reason: Fever Last Admin: 09/18/17 03:42 Dose: 650 mg Daptomycin 500 mg/ Sodium (Chloride) 10 mls @ 300 mls/hr IV Q24H MARIE Last Admin: 09/17/17 14:48 Dose: 300 mls/hr Sodium Chloride (Normal Saline) 1,000 mls @ 150 mls/hr IV STAT MARIE Last Admin: 09/18/17 11:13 Dose: 150 mls/hr Morphine Sulfate (Morphine) 2 mg IVPUSH Q2H PRN PRN Reason: Pain Last Admin: 09/18/17 08:17 Dose: 2 mg Ondansetron HCl (Zofran) 4 mg IVPUSH Q4H PRN PRN Reason: Nausea/Vomiting Last Admin: 09/18/17 09:41 Dose: 4 mg Temazepam (Restoril) 15 mg PO BEDTIME PRN PRN Reason: Insomnia Tramadol HCl (Ultram) 50 mg PO Q4H PRN PRN Reason: Pain Last Admin: 09/17/17 15:13 Dose: 50 mg Discontinued Medications Diphtheria/Tetanus/Acell Pertussis (Adacel) 0.5 ml IM .ONCE ONE Stop: 09/15/17 21:49 Last Admin: 09/15/17 21:55 Dose: 0.5 ml Hydromorphone HCl (Dilaudid) 2 mg IVPUSH ONETIME ONE Stop: 09/15/17 21:37 Last Admin: 09/15/17 21:41 Dose: 2 mg Sodium Chloride (Normal Saline) 1,000 mls @ 999 mls/hr IV STAT ONE Stop: 09/15/17 21:28 Last Admin: 09/15/17 20:40 Dose: 999 mls/hr Vancomycin HCl 1 gm/ Sodium (Chloride) 250 mls @ 250 mls/hr IV ONETIME ONE Stop: 09/15/17 22:23 Last Infusion: 09/15/17 22:40 Dose: Infused Sodium Chloride (Normal Saline) 1,000 mls @ 999 mls/hr IV STAT ONE Stop: 09/15/17 22:24 Last Infusion: 09/15/17 23:10 Dose: Infused Piperacillin Sod/Tazobactam (Sod 3.375 gm/ Sodium Chloride) 50 mls @ 100 mls/ hr IV Q6H [facility] Last Admin: 09/17/17 10:08 Dose: 100 mls/hr Vancomycin HCl 1.5 gm/ Sodium (Chloride) 500 mls @ 333.333 mls/hr IV Q8H MARIE Vancomycin HCl 2 gm/ Sodium (Chloride) 500 mls @ 333.333 mls/hr IV Q8H [facility] Last Infusion: 09/16/17 03:25 Dose: Infused Vancomycin HCl 1.5 gm/ Sodium (Chloride) 500 mls @ 333.333 mls/hr IV Q8H [facility]IE Vancomycin HCl 1.5 gm/ Sodium (Chloride) 500 mls @ 333.333 mls/hr IV Q8H [facility] Last Admin: 09/17/17 10:40 Dose: 333.333 mls/hr Influenza Virus Vaccine (Pharmacy To Dose - Influenza Vaccine) 1 each IM ONETIME ONE Stop: 09/15/17 22:23 Influenza Virus Vaccine (Fluarix Quad [id number]) 60 mcg IM .ONCE ONE Stop: 09/16/17 10:01 Last Admin: 09/16/17 10:27 Dose: 60 mcg Morphine Sulfate (Morphine) 4 mg IVPUSH Q1H PRN PRN Reason: Pain Last Admin: 09/17/17 12:32 Dose: 4 mg Ondansetron HCl (Zofran) 4 mg IVPUSH ONETIME ONE Stop: 09/15/17 21:37 Last Admin: 09/15/17 21:40 Dose: 4 mg Vancomycin HCl (Pharmacy To Dose - Vancomycin) 1 dose .XX ASDIRECTED [facility] - Exam General: Alert, Oriented Lungs: Clear to Auscultation, Normal Respiratory Effort Cardiovascular: Regular Rate, Regular Rhythm GI/Abdominal Exam: Normal Bowel Sounds, Soft, Non-Tender Extremities: Other (Swelling appears to be decreasing. The Aquasol does appear to be helping with the healing process. The erythema is now less than it was before. No abscess formation.) Skin: Other (C extremities exam) Wound/Incisions: Healing Well, Dressing Dry and Intact - Problem List Review Problem List Initiated/Reviewed/Updated: Yes - My Orders Last 24 Hours: My Active Orders 09/17/17 15:06 Morphine 2 mg IVPUSH Q2H PRN traMADol [Ultram] 50 mg PO Q4H PRN 09/18/17 10:36 Ready for Discharge [RC] PER UNIT ROUTINE 09/18/17 10:44 Blood Culture x2 Reflex Set [OM.PC] Stat 09/18/17 10:45 Sodium Chloride 0.9% [Normal Saline] 1,000 ml IV STAT 09/18/17 10:52 CULTURE BLOOD [BC] Stat CULTURE BLOOD [BC] Stat - Plan Plan:: Assessment: #1. Cellulitis of the legs bilaterally #2. Leukocytosis secondary to #1 resolved #3. History of bilateral leg cellulitis #4. History of contact dermatitis 5. History of diverticulosis Plan: #1. Switch to daptomycin IV given sensitivities for wound culture. Wound culture positive for MRSA #2. Wound care management ordered for consult. Currently has Aquasol dressing along with a gauze wrapped around his legs. We'll send him home on this as well. #3. Given his new symptoms of nausea and fever, all reassess him today and continue to monitor. We'll see how he is doing tomorrow morning. We'll continue the IV daptomycin for now. Follow up on blood cultures. #4. IV normal saline 125 mL an hour
--- NOTE | 2017-09-18 13:23 | CR ---
EXAMINATION: Two-view chest (PA and Lateral views). HISTORY: Hypoxia. FINDINGS: The trachea is midline. The cardiomediastinal silhouette is within normal limits. There is consolidat ion noted within the left lung base. No pleural effusion or pneumothorax. Osseous structures appear unremarkable. IMPRESSION: Left basilar pneumonia.
[2017-09-18] MEDS ORDERED: Iopamidol 755 MG/ML 500 ML Multipack Bottle IVPUSH STA (13:42)
[2017-09-18] MEDS ORDERED: Enoxaparin 150 MG/1 ML Syringe SUBCUT STA (13:42)
[2017-09-18] MEDS: DAPTOmycin 500 MG in Sodium Chloride 0.9% 10 ML IV SCH (14:01)
--- NOTE | 2017-09-18 14:10 | CT ---
EXAMINATION: CTA chest HISTORY: Hypoxia COMPARISON: Chest radiograph from the same day TECHNIQUE: Axial CT images obtained through the chest following the administration of 50 mL of Isovue -370 in the left antecubital fossa. Coronal and sagittal reconstructions obtained. FINDINGS: There is consolidation within the lungs bilaterally most prominent within the lung bases. N o significant pleural effusion. No pneumothorax. The heart is normal in size without a pericardial ef fusion. Nonpathologically enlarged hilar and mediastinal lymph nodes are noted, likely reactive. The thoracic aorta is normal in caliber. The main pulmonary arteries are patent. No pulmonary embolism id entified. No axillary lymphadenopathy. The central airways are clear. The visualized images of the up per abdomen appear normal. Trace bilateral gynecomastia. No suspicious osseous abnormalities identified. IMPRESSION: 1. Consolidation within the lungs bilaterally most prominent within the lung bases, most consistent w ith pneumonia. 2. No pulmonary embolism identified.
[2017-09-18] MEDS: Levofloxacin/Dextrose 5%-Water 750 MG in Premix Bag 1 BAG IV SCH (14:26)
[2017-09-18] MEDS ORDERED: Enoxaparin 40 MG/0.4 ML Syringe SUBCUT SCH (14:30)
[2017-09-18] MEDS ORDERED: Piperacillin/Tazobactam 4.5 GM in Sodium Chloride 0.9% 100 ML IV SCH (16:00)
[2017-09-18] MEDS: Piperacillin/Tazobactam 4.5 GM in Sodium Chloride 0.9% 100 ML IV SCH ×2 (16:21→21:31)
[2017-09-18] MEDS: Vancomycin 1.75 GM in Sodium Chloride 0.9% 500 ML IV SCH (16:57)
[2017-09-18] MEDS: Albuterol/Ipratropium 3.0-0.5 MG/3 ML Neb Soln NEB PRN (21:27)
[2017-09-19] MEDS: Sodium Chloride 0.9% 1,000 ML IV SCH (00:14)
[2017-09-19] MEDS: Vancomycin 1.75 GM in Sodium Chloride 0.9% 500 ML IV SCH ×3 (00:14→16:31)
[2017-09-19] MEDS: Morphine 2 MG/ML Syringe IVPUSH PRN ×6 (02:12→23:37)
[2017-09-19] MEDS: Albuterol/Ipratropium 3.0-0.5 MG/3 ML Neb Soln NEB PRN ×5 (03:30→23:35)
[2017-09-19] MEDS: Piperacillin/Tazobactam 4.5 GM in Sodium Chloride 0.9% 100 ML IV SCH ×4 (03:34→21:20)
[2017-09-19 06:06] LABS: CHLORIDE,CL 103 mmol/L (98-110); SODIUM,NA 138 mmol/L (136-146)
[2017-09-19] MEDS: Acetaminophen 325 MG Tab PO PRN ×3 (06:25→23:35)
[2017-09-19] MEDS ORDERED: Sodium Chloride 0.9% 1,000 ML IV SCH (09:30)
--- NOTE | 2017-09-19 11:09 | CR ---
EXAMINATION: Two-view chest (PA and Lateral views). HISTORY: Pneumonia. FINDINGS: The trachea is midline. There are low lung volumes. Bilateral pulmonary infiltrates are noted, likely increasing however exacerbated by low lung volumes. No definite pleural effusion or pneumothorax. Osseous structures appear unremarkable. IMPRESSION: 1. Possibly worsening bilateral pulmonary infiltrates.
--- NOTE | 2017-09-19 13:20 | PCM.PN ---
- General Info Date of Service: 09/19/17 Subjective Update: Over last 24 hours, this patient had an episode of significant hypoxemia prior to attempted discharge. This occurred all of a sudden. CT angiography was obtained with suspicion for a possible pulmonary embolism. The CT angio was negative. Chest x-ray indicated a basilar pneumonia. He has been started on vancomycin, Zosyn, Levaquin for hospital-acquired pneumonia. Blood cultures were obtained and the patient spiked a fever. Lactate was normal. Fluids were initially started but now have been stopped. As per nursing staff, looks like his breathing status in terms of hypoxia is worsening. He was last noted to be on 5 L via nasal cannula. This talked to the patient however, he tells me that he feels better than he did last night when talking to him this morning. He tells me that he is up in his chair and he feels better when he's sitting up rather than lying down in bed. His pain is also under control. He feels that his legs are healing. Denies any chest pain, nausea or vomiting, abdominal pain , numbness or tingling. - Review of Systems General: Reports: Other (See history of present illness) - Patient Data Vitals - Most Recent: Last Vital Signs Temp 37.7 C 09/19/17 12:00 Pulse 115 H 09/19/17 12:00 Resp 20 09/19/17 12:00 BP 140/87 09/19/17 12:00 Pulse Ox 93 L 09/19/17 12:00 Weight - Most Recent: 122.9 kg I&O - Last 24 Hours: Intake & Output 09/18/17 09/19/17 09/19/17 22:59 06:59 14:59 Intake Total 2460 3062 600 Output Total 400 1150 Balance 2060 1912 600 Lab Results Last 24 Hours: Laboratory Results - last 24 hr 09/19/17 09/19/17 09/19/17 Range/Units 05:16 05:16 09:25 WBC 16.18 H (4.0-11.0) K/uL RBC 5.01 (4.50-5.90) M/uL Hgb 15.7 (13.0-17.0) g/dL Hct 46.9 (38.0-50.0) % MCV 93.6 (80.0-98.0) fL MCH 31.3 (27.0-32.0) pg MCHC 33.5 (31.0-37.0) g/dL RDW Std Deviation 46.4 (28.0-62.0) fl RDW Coeff of Shad 14 (11.0-15.0) % Plt Count 257 (150-400) K/uL MPV 10.10 (7.40-12.00) fL Neut % (Auto) 79.8 (48.0-80.0) % Lymph % (Auto) 9.8 L (16.0-40.0) % [place] % (Auto) 9.1 (0.0-15.0) % Eos % (Auto) 0.9 (0.0-7.0) % Baso % (Auto) 0.4 (0.0-1.5) % Neut # (Auto) 12.9 H (1.4-5.7) K/uL Lymph # (Auto) 1.6 (0.6-2.4) K/uL [place] # (Auto) 1.5 H (0.0-0.8) K/uL Eos # (Auto) 0.2 (0.0-0.7) K/uL Baso # (Auto) 0.1 (0.0-0.1) K/uL Nucleated RBC % 0.0 /100WBC Nucleated RBCs # 0 K/uL Lactate 1.7 (0.20-2.00) mmol/L Sodium 138 (136-146) mmol/L Potassium 4.1 (3.5-5.1) mmol/L Chloride 103 (98-110) mmol/L Carbon Dioxide 26 (21-31) mmol/L BUN 8 (6.0-23.0) mg/dL Creatinine 0.9 (0.6-1.5) mg/dL Est Cr Clr Drug Dosing 107.86 mL/min Estimated GFR (MDRD) > 60.0 ml/min Glucose 113 H (60-110) mg/dL Calcium 7.9 L (8.8-10.8) mg/dL Nitin Results Last 24 Hours: Microbiology 09/18/17 10:52 Aerobic Blood Culture - Preliminary Blood - Venous - Lab Draw NO GROWTH AFTER 1 DAY Anaerobic Blood Culture - Preliminary NO GROWTH AFTER 1 DAY 09/18/17 10:52 Aerobic Blood Culture - Preliminary Blood - Venous NO GROWTH AFTER 1 DAY Anaerobic Blood Culture - Preliminary NO GROWTH AFTER 1 DAY Med Orders - Current: Current Medications Acetaminophen (Tylenol) 650 mg PO Q4H PRN PRN Reason: Fever Last Admin: 09/19/17 06:25 Dose: 650 mg Albuterol/Ipratropium (Duoneb 3.0-0.5 Mg/3 Ml) 3 ml NEB Q4HRRT PRN PRN Reason: Wheezing Last Admin: 09/19/17 08:22 Dose: 3 ml Enoxaparin Sodium (Lovenox) 40 mg SUBCUT Q24H MARIE Levofloxacin/Dextrose 750 mg/ (Premix) 150 mls @ 100 mls/hr IV Q24H [facility] Last Admin: 09/18/17 14:26 Dose: 100 mls/hr Vancomycin HCl 1.75 gm/ Sodium (Chloride) 500 mls @ 250 mls/hr IV Q8H [facility] Last Admin: 09/19/17 08:05 Dose: 250 mls/hr Piperacillin Sod/Tazobactam (Sod 4.5 gm/ Sodium Chloride) 100 mls @ 200 mls/hr IV Q6H [facility] Last Admin: 09/19/17 09:43 Dose: 200 mls/hr Morphine Sulfate (Morphine) 2 mg IVPUSH Q2H PRN PRN Reason: Pain Last Admin: 09/19/17 12:49 Dose: 2 mg Ondansetron HCl (Zofran) 4 mg IVPUSH Q4H PRN PRN Reason: Nausea/Vomiting Last Admin: 09/18/17 09:41 Dose: 4 mg Temazepam (Restoril) 15 mg PO BEDTIME PRN PRN Reason: Insomnia Tramadol HCl (Ultram) 50 mg PO Q4H PRN PRN Reason: Pain Last Admin: 09/17/17 15:13 Dose: 50 mg Vancomycin HCl (Pharmacy To Dose - Vancomycin) 1 dose .XX ASDIRECTED [facility] Discontinued Medications Diphtheria/Tetanus/Acell Pertussis (Adacel) 0.5 ml IM .ONCE ONE Stop: 09/15/17 21:49 Last Admin: 09/15/17 21:55 Dose: 0.5 ml Enoxaparin Sodium (Lovenox) 120 mg SUBCUT ONETIME STA Stop: 09/18/17 13:43 Last Admin: 09/18/17 14:02 Dose: 120 mg Enoxaparin Sodium (Lovenox) 40 mg SUBCUT Q24H [facility] Last Admin: 09/18/17 14:43 Dose: Not Given Hydromorphone HCl (Dilaudid) 2 mg IVPUSH ONETIME ONE Stop: 09/15/17 21:37 Last Admin: 09/15/17 21:41 Dose: 2 mg Sodium Chloride (Normal Saline) 1,000 mls @ 999 mls/hr IV STAT ONE Stop: 09/15/17 21:28 Last Admin: 09/15/17 20:40 Dose: 999 mls/hr Vancomycin HCl 1 gm/ Sodium (Chloride) 250 mls @ 250 mls/hr IV ONETIME ONE Stop: 09/15/17 22:23 Last Infusion: 09/15/17 22:40 Dose: Infused Sodium Chloride (Normal Saline) 1,000 mls @ 999 mls/hr IV STAT ONE Stop: 09/15/17 22:24 Last Infusion: 09/15/17 23:10 Dose: Infused Piperacillin Sod/Tazobactam (Sod 3.375 gm/ Sodium Chloride) 50 mls @ 100 mls/ hr IV Q6H [facility] Last Admin: 09/17/17 10:08 Dose: 100 mls/hr Vancomycin HCl 1.5 gm/ Sodium (Chloride) 500 mls @ 333.333 mls/hr IV Q8H [facility]IE Vancomycin HCl 2 gm/ Sodium (Chloride) 500 mls @ 333.333 mls/hr IV Q8H [facility] Last Infusion: 09/16/17 03:25 Dose: Infused Vancomycin HCl 1.5 gm/ Sodium (Chloride) 500 mls @ 333.333 mls/hr IV Q8H [facility] Vancomycin HCl 1.5 gm/ Sodium (Chloride) 500 mls @ 333.333 mls/hr IV Q8H [facility] Last Admin: 09/17/17 10:40 Dose: 333.333 mls/hr Daptomycin 500 mg/ Sodium (Chloride) 10 mls @ 300 mls/hr IV Q24H [facility] Last Admin: 09/18/17 14:01 Dose: 300 mls/hr Sodium Chloride (Normal Saline) 1,000 mls @ 100 mls/hr IV STAT [facility] Last Infusion: 09/18/17 17:54 Dose: Infused Piperacillin Sod/Tazobactam (Sod 4.5 gm/ Sodium Chloride) 100 mls @ 200 mls/hr IV Q6H [facility] Last Admin: 09/18/17 17:20 Dose: Not Given Sodium Chloride (Normal Saline) 1,000 mls @ 100 mls/hr IV STAT [facility] Last Admin: 09/19/17 09:43 Dose: 100 mls/hr Influenza Virus Vaccine (Pharmacy To Dose - Influenza Vaccine) 1 each IM ONETIME ONE Stop: 09/15/17 22:23 Influenza Virus Vaccine (Fluarix Quad 1322-5613) 60 mcg IM .ONCE ONE Stop: 09/16/17 10:01 Last Admin: 09/16/17 10:27 Dose: 60 mcg Iopamidol (Isovue Multipack-370 (76%)) 50 ml IVPUSH ONETIME STA Stop: 09/18/17 13:43 Last Admin: 09/18/17 14:00 Dose: 50 ml Morphine Sulfate (Morphine) 4 mg IVPUSH Q1H PRN PRN Reason: Pain Last Admin: 09/17/17 12:32 Dose: 4 mg Ondansetron HCl (Zofran) 4 mg IVPUSH ONETIME ONE Stop: 09/15/17 21:37 Last Admin: 09/15/17 21:40 Dose: 4 mg Vancomycin HCl (Pharmacy To Dose - Vancomycin) 1 dose .XX ASDIRECTED [facility] - Exam Quality Assessment: Supplemental Oxygen General: Alert, Oriented Lungs: Normal Respiratory Effort, Other (Crackles appreciated on the left side. ) Cardiovascular: Regular Rate, Regular Rhythm GI/Abdominal Exam: Normal Bowel Sounds, Soft, Non-Tender Extremities: Other (Consistent with yesterday's exam showing signs of improvement. The wound appears to be dry bilaterally with no abscess formation. Legs do appear to be edematous however.) Skin: Other (see extremities exam) - Problem List Review Problem List Initiated/Reviewed/Updated: Yes - My Orders Last 24 Hours: My Active Orders 09/18/17 12:47 Chest 2V [CR] Stat 09/18/17 12:48 Albuterol/Ipratropium [DuoNeb 3.0-0.5 MG/3 ML] 3 ml NEB Q4HRRT PRN 09/18/17 12:50 RT Aerosol Therapy [RC] ASDIRECTED - Plan Plan:: Assessment: #1. Hospital-acquired pneumonia #2. Leukocytosis secondary to #1 #3. bilateral leg cellulitis #4. History of contact dermatitis 5. History of diverticulosis Plan: #1. Switch to vancomycin, Zosyn, Levaquin. Blood cultures are pending. DuoNeb ordered when necessary for shortness of breath, wheezing #2. Wound care management ordered for consult. Currently has Aquasol dressing along with a gauze wrapped around his legs. We'll send him home on this as well. #3. Repeat chest x-ray indicates a possibly worsening bilateral infiltrate. #4. Sputum culture #5. Stop IV fluids #6. Lovenox for DVT prophylaxis
[2017-09-19] MEDS: Levofloxacin/Dextrose 5%-Water 750 MG in Premix Bag 1 BAG IV SCH (14:08)
[2017-09-19] MEDS: traMADol 50 MG Tab PO PRN ×2 (14:09→18:53)
[2017-09-19] MEDS: Enoxaparin 40 MG/0.4 ML Syringe SUBCUT SCH (14:09)
[2017-09-20] MEDS ORDERED: Furosemide 40 MG/4 ML VIAL IVPUSH STA (01:27)
[2017-09-20] MEDS: Albuterol/Ipratropium 3.0-0.5 MG/3 ML Neb Soln NEB PRN ×3 (01:33→13:13)
[2017-09-20] MEDS: Vancomycin 1.75 GM in Sodium Chloride 0.9% 500 ML IV SCH ×2 (01:41→09:42)
[2017-09-20] MEDS: Piperacillin/Tazobactam 4.5 GM in Sodium Chloride 0.9% 100 ML IV SCH ×4 (03:59→22:49)
[2017-09-20] MEDS: Acetaminophen 325 MG Tab PO PRN ×2 (05:24→23:32)
[2017-09-20 09:04] LABS: CHLORIDE,CL 100 mmol/L (98-110); SODIUM,NA 136 mmol/L (136-146)
--- NOTE | 2017-09-20 09:36 | PCM.PN ---
- Review of Systems Systems Review Comment:: reports breathing is improved today, - Patient Data Vitals - Most Recent: Last Vital Signs Temp 35.8 C 09/20/17 08:08 Pulse 119 H 09/20/17 08:08 Resp 20 09/20/17 08:08 BP 113/66 09/20/17 08:08 Pulse Ox 91 L 09/20/17 08:08 Weight - Most Recent: 122.9 kg I&O - Last 24 Hours: Intake & Output 09/19/17 09/20/17 09/20/17 22:59 06:59 14:59 Intake Total 600 1300 Output Total 800 1430 Balance -200 -130 Lab Results Last 24 Hours: Laboratory Results - last 24 hr 09/20/17 09/20/17 09/20/17 Range/Units 08:30 08:30 08:30 WBC 18.28 H (4.0-11.0) K/uL RBC 4.63 (4.50-5.90) M/uL Hgb 14.7 (13.0-17.0) g/dL Hct 42.7 (38.0-50.0) % MCV 92.2 (80.0-98.0) fL MCH 31.7 (27.0-32.0) pg MCHC 34.4 (31.0-37.0) g/dL RDW Std Deviation 45.7 (28.0-62.0) fl RDW Coeff of Shad 14 (11.0-15.0) % Plt Count 252 (150-400) K/uL MPV 9.70 (7.40-12.00) fL Add Manual Diff YES Neutrophils % (Manual) 71 (48.0-80.0) % Band Neutrophils % 12 % Lymphocytes % (Manual) 14 L (16.0-40.0) % Monocytes % (Manual) 2 (0.0-15.0) % Basophils % (Manual) 1 (0.0-1.5) % Nucleated RBC % 0.0 /100WBC Absolute Seg Neuts 13.0 H (1.4-5.7) Band Neutrophils # 2.2 Lymphocytes # (Manual) 2.6 H (0.6-2.4) Monocytes # (Manual) 0.4 (0.0-0.8) Basophils # (Manual) 0.2 H (0.0-0.1) Nucleated RBCs # 0 K/uL Sodium 136 (136-146) mmol/L Potassium 4.1 (3.5-5.1) mmol/L Chloride 100 (98-110) mmol/L Carbon Dioxide 27 (21-31) mmol/L BUN 9 (6.0-23.0) mg/dL Creatinine 0.8 (0.6-1.5) mg/dL Est Cr Clr Drug Dosing 121.34 mL/min Estimated GFR (MDRD) > 60.0 ml/min Glucose 114 H (60-110) mg/dL Calcium 7.9 L (8.8-10.8) mg/dL Vancomycin Trough 12.4 (5-15) ug/mL Nitin Results Last 24 Hours: Microbiology 09/19/17 07:03 Aerobic Blood Culture - Preliminary Blood - Venous - Lab Draw NO GROWTH AFTER 1 DAY Anaerobic Blood Culture - Preliminary NO GROWTH AFTER 1 DAY 09/19/17 06:50 Aerobic Blood Culture - Preliminary Blood - Venous NO GROWTH AFTER 1 DAY Anaerobic Blood Culture - Preliminary NO GROWTH AFTER 1 DAY 09/19/17 13:30 Gram Stain - Preliminary Sputum - Expectorated 09/18/17 10:52 Aerobic Blood Culture - Preliminary Blood - Venous - Lab Draw NO GROWTH AFTER 1 DAY Anaerobic Blood Culture - Preliminary NO GROWTH AFTER 1 DAY 09/18/17 10:52 Aerobic Blood Culture - Preliminary Blood - Venous NO GROWTH AFTER 1 DAY Anaerobic Blood Culture - Preliminary NO GROWTH AFTER 1 DAY Med Orders - Current: Current Medications Acetaminophen (Tylenol) 650 mg PO Q4H PRN PRN Reason: Fever Last Admin: 09/20/17 05:24 Dose: 650 mg Albuterol/Ipratropium (Duoneb 3.0-0.5 Mg/3 Ml) 3 ml NEB Q4HRRT PRN PRN Reason: Wheezing Last Admin: 09/20/17 05:32 Dose: 3 ml Enoxaparin Sodium (Lovenox) 40 mg SUBCUT Q24H [facility] Last Admin: 09/19/17 14:09 Dose: 40 mg Levofloxacin/Dextrose 750 mg/ (Premix) 150 mls @ 100 mls/hr IV Q24H [facility] Last Admin: 09/19/17 14:08 Dose: 100 mls/hr Vancomycin HCl 1.75 gm/ Sodium (Chloride) 500 mls @ 250 mls/hr IV Q8H [facility] Last Infusion: 09/20/17 03:45 Dose: Infused Piperacillin Sod/Tazobactam (Sod 4.5 gm/ Sodium Chloride) 100 mls @ 200 mls/hr IV Q6H [facility] Last Infusion: 09/20/17 04:30 Dose: Infused Morphine Sulfate (Morphine) 2 mg IVPUSH Q2H PRN PRN Reason: Pain Last Admin: 09/19/17 23:37 Dose: 2 mg Ondansetron HCl (Zofran) 4 mg IVPUSH Q4H PRN PRN Reason: Nausea/Vomiting Last Admin: 09/18/17 09:41 Dose: 4 mg Temazepam (Restoril) 15 mg PO BEDTIME PRN PRN Reason: Insomnia Tramadol HCl (Ultram) 50 mg PO Q4H PRN PRN Reason: Pain Last Admin: 09/19/17 18:53 Dose: 50 mg Vancomycin HCl (Pharmacy To Dose - Vancomycin) 1 dose .XX ASDIRECTED [facility] Discontinued Medications Diphtheria/Tetanus/Acell Pertussis (Adacel) 0.5 ml IM .ONCE ONE Stop: 09/15/17 21:49 Last Admin: 09/15/17 21:55 Dose: 0.5 ml Enoxaparin Sodium (Lovenox) 120 mg SUBCUT ONETIME STA Stop: 09/18/17 13:43 Last Admin: 09/18/17 14:02 Dose: 120 mg Enoxaparin Sodium (Lovenox) 40 mg SUBCUT Q24H [facility] Last Admin: 09/18/17 14:43 Dose: Not Given Furosemide (Lasix) 40 mg IVPUSH NOW STA Stop: 09/20/17 01:28 Last Admin: 09/20/17 01:39 Dose: 40 mg Hydromorphone HCl (Dilaudid) 2 mg IVPUSH ONETIME ONE Stop: 09/15/17 21:37 Last Admin: 09/15/17 21:41 Dose: 2 mg Sodium Chloride (Normal Saline) 1,000 mls @ 999 mls/hr IV STAT ONE Stop: 09/15/17 21:28 Last Admin: 09/15/17 20:40 Dose: 999 mls/hr Vancomycin HCl 1 gm/ Sodium (Chloride) 250 mls @ 250 mls/hr IV ONETIME ONE Stop: 09/15/17 22:23 Last Infusion: 09/15/17 22:40 Dose: Infused Sodium Chloride (Normal Saline) 1,000 mls @ 999 mls/hr IV STAT ONE Stop: 09/15/17 22:24 Last Infusion: 09/15/17 23:10 Dose: Infused Piperacillin Sod/Tazobactam (Sod 3.375 gm/ Sodium Chloride) 50 mls @ 100 mls/ hr IV Q6H [facility] Last Admin: 09/17/17 10:08 Dose: 100 mls/hr Vancomycin HCl 1.5 gm/ Sodium (Chloride) 500 mls @ 333.333 mls/hr IV Q8H [facility] Vancomycin HCl 2 gm/ Sodium (Chloride) 500 mls @ 333.333 mls/hr IV Q8H [facility] Last Infusion: 09/16/17 03:25 Dose: Infused Vancomycin HCl 1.5 gm/ Sodium (Chloride) 500 mls @ 333.333 mls/hr IV Q8H [facility] Vancomycin HCl 1.5 gm/ Sodium (Chloride) 500 mls @ 333.333 mls/hr IV Q8H [facility] Last Admin: 09/17/17 10:40 Dose: 333.333 mls/hr Daptomycin 500 mg/ Sodium (Chloride) 10 mls @ 300 mls/hr IV Q24H [facility] Last Admin: 09/18/17 14:01 Dose: 300 mls/hr Sodium Chloride (Normal Saline) 1,000 mls @ 100 mls/hr IV STAT [facility] Last Infusion: 09/18/17 17:54 Dose: Infused Piperacillin Sod/Tazobactam (Sod 4.5 gm/ Sodium Chloride) 100 mls @ 200 mls/hr IV Q6H [facility] Last Admin: 09/18/17 17:20 Dose: Not Given Sodium Chloride (Normal Saline) 1,000 mls @ 100 mls/hr IV STAT [facility] Last Admin: 09/19/17 09:43 Dose: 100 mls/hr Influenza Virus Vaccine (Pharmacy To Dose - Influenza Vaccine) 1 each IM ONETIME ONE Stop: 09/15/17 22:23 Influenza Virus Vaccine (Fluarix Quad 8549-8282) 60 mcg IM .ONCE ONE Stop: 09/16/17 10:01 Last Admin: 09/16/17 10:27 Dose: 60 mcg Iopamidol (Isovue Multipack-370 (76%)) 50 ml IVPUSH ONETIME STA Stop: 09/18/17 13:43 Last Admin: 09/18/17 14:00 Dose: 50 ml Morphine Sulfate (Morphine) 4 mg IVPUSH Q1H PRN PRN Reason: Pain Last Admin: 09/17/17 12:32 Dose: 4 mg Ondansetron HCl (Zofran) 4 mg IVPUSH ONETIME ONE Stop: 09/15/17 21:37 Last Admin: 09/15/17 21:40 Dose: 4 mg Vancomycin HCl (Pharmacy To Dose - Vancomycin) 1 dose .XX ASDIRECTED [facility] - Exam General: Alert, Oriented Lungs: Clear to Auscultation, Normal Respiratory Effort. No: Crackles, Wheezing Cardiovascular: Regular Rate, Regular Rhythm Extremities: Pedal Edema (bilateral lower extremity rash) Neurological: No New Focal Deficit - Problem List Review Problem List Initiated/Reviewed/Updated: Yes - Plan Plan:: 36 yo male admitted with bilateral lower extremity cellulitis who has developed pneumonia HAP: continue vancomycin, zosyn, and levaquin, following cultures bilateral leg cellulitis: continue abx, wound care with aquasol with gauze wrapping
[2017-09-20] MEDS: Linezolid 600 MG in Premix Bag 1 BAG IV SCH ×2 (09:52→21:31)
[2017-09-20] MEDS: traMADol 50 MG Tab PO PRN ×3 (10:34→20:17)
[2017-09-20] MEDS: Morphine 2 MG/ML Syringe IVPUSH PRN (12:09)
[2017-09-20] MEDS: Levofloxacin/Dextrose 5%-Water 750 MG in Premix Bag 1 BAG IV SCH (14:03)
[2017-09-20] MEDS: Enoxaparin 40 MG/0.4 ML Syringe SUBCUT SCH (14:12)
[2017-09-20] MEDS ORDERED: Furosemide 40 MG/4 ML VIAL IVPUSH ONE (23:49)
[2017-09-21] MEDS: traMADol 50 MG Tab PO PRN ×2 (00:04→14:14)
[2017-09-21] MEDS: Piperacillin/Tazobactam 4.5 GM in Sodium Chloride 0.9% 100 ML IV SCH ×4 (04:43→22:03)
[2017-09-21 06:27] LABS: CHLORIDE,CL 97 mmol/L (98-110); SODIUM,NA 136 mmol/L (136-146)
[2017-09-21] MEDS: Linezolid 600 MG in Premix Bag 1 BAG IV SCH ×2 (08:57→20:55)
--- NOTE | 2017-09-21 09:25 | PCM.PN ---
- Review of Systems Systems Review Comment:: patient reports feeling better, is coughing up more phlegm. - Patient Data Vitals - Most Recent: Last Vital Signs Temp 36.6 C 09/21/17 07:39 Pulse 112 H 09/21/17 07:39 Resp 20 09/21/17 07:39 BP 138/70 09/21/17 07:39 Pulse Ox 95 09/21/17 07:39 Weight - Most Recent: 122.9 kg I&O - Last 24 Hours: Intake & Output 09/20/17 09/21/17 09/21/17 22:59 06:59 14:59 Intake Total 550 1150 Output Total 2580 Balance 550 -1430 Lab Results Last 24 Hours: Laboratory Results - last 24 hr 09/20/17 09/21/17 09/21/17 Range/Units 08:30 05:34 05:34 WBC 14.27 H (4.0-11.0) K/uL RBC 4.88 (4.50-5.90) M/uL Hgb 15.1 (13.0-17.0) g/dL Hct 45.1 (38.0-50.0) % MCV 92.4 (80.0-98.0) fL MCH 30.9 (27.0-32.0) pg MCHC 33.5 (31.0-37.0) g/dL RDW Std Deviation 45.1 (28.0-62.0) fl RDW Coeff of Shad 14 (11.0-15.0) % Plt Count 215 (150-400) K/uL MPV 10.60 (7.40-12.00) fL Neut % (Auto) 71.5 (48.0-80.0) % Lymph % (Auto) 13.7 L (16.0-40.0) % [place] % (Auto) 10.8 (0.0-15.0) % Eos % (Auto) 3.6 (0.0-7.0) % Baso % (Auto) 0.4 (0.0-1.5) % Neut # (Auto) 10.2 H (1.4-5.7) K/uL Lymph # (Auto) 2.0 (0.6-2.4) K/uL [place] # (Auto) 1.5 H (0.0-0.8) K/uL Eos # (Auto) 0.5 (0.0-0.7) K/uL Baso # (Auto) 0.1 (0.0-0.1) K/uL Neutrophils % (Manual) 71 (48.0-80.0) % Band Neutrophils % 12 % Lymphocytes % (Manual) 14 L (16.0-40.0) % Monocytes % (Manual) 2 (0.0-15.0) % Basophils % (Manual) 1 (0.0-1.5) % Absolute Seg Neuts 13.0 H (1.4-5.7) Band Neutrophils # 2.2 Lymphocytes # (Manual) 2.6 H (0.6-2.4) Monocytes # (Manual) 0.4 (0.0-0.8) Basophils # (Manual) 0.2 H (0.0-0.1) Sodium 136 (136-146) mmol/L Potassium 4.9 (3.5-5.1) mmol/L Chloride 97 L (98-110) mmol/L Carbon Dioxide 28 (21-31) mmol/L BUN 11 (6.0-23.0) mg/dL Creatinine 0.8 (0.6-1.5) mg/dL Est Cr Clr Drug Dosing 121.34 mL/min Estimated GFR (MDRD) > 60.0 ml/min Glucose 89 (60-110) mg/dL Calcium 8.2 L (8.8-10.8) mg/dL Nitin Results Last 24 Hours: Microbiology 09/19/17 13:30 Gram Stain - Final Sputum - Expectorated Sputum Culture - Final Normal Respiratory Shama 09/19/17 07:03 Aerobic Blood Culture - Preliminary Blood - Venous - Lab Draw NO GROWTH AFTER 2 DAYS Anaerobic Blood Culture - Preliminary NO GROWTH AFTER 2 DAYS 09/19/17 06:50 Aerobic Blood Culture - Preliminary Blood - Venous NO GROWTH AFTER 2 DAYS Anaerobic Blood Culture - Preliminary NO GROWTH AFTER 2 DAYS 09/18/17 10:52 Aerobic Blood Culture - Preliminary Blood - Venous - Lab Draw NO GROWTH AFTER 2 DAYS Anaerobic Blood Culture - Preliminary NO GROWTH AFTER 2 DAYS 09/18/17 10:52 Aerobic Blood Culture - Preliminary Blood - Venous NO GROWTH AFTER 2 DAYS Anaerobic Blood Culture - Preliminary NO GROWTH AFTER 2 DAYS Med Orders - Current: Current Medications Acetaminophen (Tylenol) 650 mg PO Q4H PRN PRN Reason: Fever Last Admin: 09/20/17 23:32 Dose: 650 mg Albuterol/Ipratropium (Duoneb 3.0-0.5 Mg/3 Ml) 3 ml NEB Q4HRRT PRN PRN Reason: Wheezing Last Admin: 09/20/17 13:13 Dose: 3 ml Enoxaparin Sodium (Lovenox) 40 mg SUBCUT Q24H [facility] Last Admin: 09/20/17 14:12 Dose: 40 mg Levofloxacin/Dextrose 750 mg/ (Premix) 150 mls @ 100 mls/hr IV Q24H [facility] Last Admin: 09/20/17 14:03 Dose: 100 mls/hr Piperacillin Sod/Tazobactam (Sod 4.5 gm/ Sodium Chloride) 100 mls @ 200 mls/hr IV Q6H [facility] Last Admin: 09/21/17 04:43 Dose: 200 mls/hr Linezolid 600 mg/ Premix 300 mls @ 300 mls/hr IV Q12H [facility] Last Admin: 09/21/17 08:57 Dose: 300 mls/hr Ibuprofen (Motrin) 400 mg PO Q6H PRN PRN Reason: Pain Morphine Sulfate (Morphine) 2 mg IVPUSH Q2H PRN PRN Reason: Pain Last Admin: 09/20/17 12:09 Dose: 2 mg Ondansetron HCl (Zofran) 4 mg IVPUSH Q4H PRN PRN Reason: Nausea/Vomiting Last Admin: 09/18/17 09:41 Dose: 4 mg Temazepam (Restoril) 15 mg PO BEDTIME PRN PRN Reason: Insomnia Tramadol HCl (Ultram) 50 mg PO Q4H PRN PRN Reason: Pain Last Admin: 09/21/17 00:04 Dose: 50 mg Discontinued Medications Diphtheria/Tetanus/Acell Pertussis (Adacel) 0.5 ml IM .ONCE ONE Stop: 09/15/17 21:49 Last Admin: 09/15/17 21:55 Dose: 0.5 ml Enoxaparin Sodium (Lovenox) 120 mg SUBCUT ONETIME STA Stop: 09/18/17 13:43 Last Admin: 09/18/17 14:02 Dose: 120 mg Enoxaparin Sodium (Lovenox) 40 mg SUBCUT Q24H [facility] Last Admin: 09/18/17 14:43 Dose: Not Given Furosemide (Lasix) 40 mg IVPUSH NOW STA Stop: 09/20/17 01:28 Last Admin: 09/20/17 01:39 Dose: 40 mg Furosemide (Lasix) 40 mg IVPUSH NOW ONE Stop: 09/20/17 23:50 Last Admin: 09/21/17 00:04 Dose: 40 mg Hydromorphone HCl (Dilaudid) 2 mg IVPUSH ONETIME ONE Stop: 09/15/17 21:37 Last Admin: 09/15/17 21:41 Dose: 2 mg Sodium Chloride (Normal Saline) 1,000 mls @ 999 mls/hr IV STAT ONE Stop: 09/15/17 21:28 Last Admin: 09/15/17 20:40 Dose: 999 mls/hr Vancomycin HCl 1 gm/ Sodium (Chloride) 250 mls @ 250 mls/hr IV ONETIME ONE Stop: 09/15/17 22:23 Last Infusion: 09/15/17 22:40 Dose: Infused Sodium Chloride (Normal Saline) 1,000 mls @ 999 mls/hr IV STAT ONE Stop: 09/15/17 22:24 Last Infusion: 09/15/17 23:10 Dose: Infused Piperacillin Sod/Tazobactam (Sod 3.375 gm/ Sodium Chloride) 50 mls @ 100 mls/ hr IV Q6H [facility] Last Admin: 09/17/17 10:08 Dose: 100 mls/hr Vancomycin HCl 1.5 gm/ Sodium (Chloride) 500 mls @ 333.333 mls/hr IV Q8H [facility] Vancomycin HCl 2 gm/ Sodium (Chloride) 500 mls @ 333.333 mls/hr IV Q8H [facility] Last Infusion: 09/16/17 03:25 Dose: Infused Vancomycin HCl 1.5 gm/ Sodium (Chloride) 500 mls @ 333.333 mls/hr IV Q8H [facility] Vancomycin HCl 1.5 gm/ Sodium (Chloride) 500 mls @ 333.333 mls/hr IV Q8H [facility] Last Admin: 09/17/17 10:40 Dose: 333.333 mls/hr Daptomycin 500 mg/ Sodium (Chloride) 10 mls @ 300 mls/hr IV Q24H [facility] Last Admin: 09/18/17 14:01 Dose: 300 mls/hr Sodium Chloride (Normal Saline) 1,000 mls @ 100 mls/hr IV STAT [facility] Last Infusion: 09/18/17 17:54 Dose: Infused Piperacillin Sod/Tazobactam (Sod 4.5 gm/ Sodium Chloride) 100 mls @ 200 mls/hr IV Q6H [facility] Last Admin: 09/18/17 17:20 Dose: Not Given Vancomycin HCl 1.75 gm/ Sodium (Chloride) 500 mls @ 250 mls/hr IV Q8H [facility] Last Admin: 09/20/17 09:42 Dose: Not Given Sodium Chloride (Normal Saline) 1,000 mls @ 100 mls/hr IV STAT [facility] Last Admin: 09/19/17 09:43 Dose: 100 mls/hr Influenza Virus Vaccine (Pharmacy To Dose - Influenza Vaccine) 1 each IM ONETIME ONE Stop: 09/15/17 22:23 Influenza Virus Vaccine (Fluarix Quad 2777-6200) 60 mcg IM .ONCE ONE Stop: 09/16/17 10:01 Last Admin: 09/16/17 10:27 Dose: 60 mcg Iopamidol (Isovue Multipack-370 (76%)) 50 ml IVPUSH ONETIME STA Stop: 09/18/17 13:43 Last Admin: 09/18/17 14:00 Dose: 50 ml Morphine Sulfate (Morphine) 4 mg IVPUSH Q1H PRN PRN Reason: Pain Last Admin: 09/17/17 12:32 Dose: 4 mg Ondansetron HCl (Zofran) 4 mg IVPUSH ONETIME ONE Stop: 09/15/17 21:37 Last Admin: 09/15/17 21:40 Dose: 4 mg Vancomycin HCl (Pharmacy To Dose - Vancomycin) 1 dose .XX ASDIRECTED [facility] Vancomycin HCl (Pharmacy To Dose - Vancomycin) 1 dose .XX ASDIRECTED [facility] - Exam General: Alert, Oriented Lungs: Normal Respiratory Effort, Rhonchi Cardiovascular: Regular Rate, Regular Rhythm GI/Abdominal Exam: Soft, Non-Tender, No Distention Extremities: Pedal Edema (+1 pedal edema with bilateral rash that is improving) - Problem List Review Problem List Initiated/Reviewed/Updated: Yes - My Orders Last 24 Hours: My Active Orders 09/20/17 09:45 Linezolid [Zyvox] 600 mg Premix Bag 1 bag IV Q12H 09/20/17 23:07 CXR [Chest 1V Frontal] [CR] Routine 09/20/17 23:50 Ibuprofen [Motrin] 400 mg PO Q6H PRN - Plan Plan:: 36 yo male admitted with bilateral lower extremity cellulitis who has developed pneumonia HAP: continue linezolid, zosyn, and levaquin, leukocytosis is improving to 14, 270 bilateral leg cellulitis: continue antibiotics, wound care with aquasol with gauze wrapping
[2017-09-21] MEDS: Ibuprofen 400 MG Tab PO PRN (09:39)
[2017-09-21] MEDS: Levofloxacin/Dextrose 5%-Water 750 MG in Premix Bag 1 BAG IV SCH (14:16)
[2017-09-21] MEDS: Enoxaparin 40 MG/0.4 ML Syringe SUBCUT SCH (14:26)
[2017-09-22] MEDS: Piperacillin/Tazobactam 4.5 GM in Sodium Chloride 0.9% 100 ML IV SCH ×4 (04:27→22:55)
[2017-09-22] MEDS: traMADol 50 MG Tab PO PRN ×2 (05:40→16:30)
[2017-09-22 06:09] LABS: CHLORIDE,CL 102 mmol/L (98-110); SODIUM,NA 138 mmol/L (136-146)
[2017-09-22] MEDS: Linezolid 600 MG in Premix Bag 1 BAG IV SCH ×2 (08:53→21:47)
[2017-09-22] MEDS: Levofloxacin/Dextrose 5%-Water 750 MG in Premix Bag 1 BAG IV SCH (13:48)
[2017-09-22] MEDS: Enoxaparin 40 MG/0.4 ML Syringe SUBCUT SCH (13:54)
--- NOTE | 2017-09-22 15:26 | CR ---
EXAM DATE: 09/15/17 PATIENT'S AGE: 36 Patient: AMARI RAMÍREZ Facility: [place], [place] Site . Site : [id number] Study: XRay Chest [id number] 11:31:23 PM Ordering Physician: Trini Blanton Final Report: INDICATION: Shortness of breath TECHNIQUE: Chest radiograph 1 view COMPARISON: 09/19/2017 FINDINGS: Severe degradation of image quality noted due to body habitus. Mediastinum: The mediastinum is normal in appearance. The heart silhouette is normal in size and morphology. Lungs: The lung volumes are small with diffuse interstitial opacities and indistinctness of the pulmonary vessels which are likely due to pulmonary edema. No sign of pleural effusion seen. No pneumothorax is identified. A prominent skin fold is seen over the right hemithorax. Bones: Unremarkable for age. IMPRESSION: 1. The lung volumes are small with diffuse interstitial opacities and indistinctness of the pulmonary vessels which are likely due to pulmonary edema. Dictated by Marquise Sauer MD @ 09/20/2017 11:39:07 PM Dictated by: Marquise Sauer MD @ 09/20/2017 23:39:12 (Electronic Signature) Report Signed by Proxy. ZUHAIR
--- NOTE | 2017-09-22 16:43 | PCM.PN ---
- General Info Date of Service: 09/22/17 - Review of Systems General: Reports: No Symptoms HEENT: Reports: No Symptoms Pulmonary: Reports: No Symptoms Cardiovascular: Reports: No Symptoms Gastrointestinal: Reports: No Symptoms Genitourinary: Reports: No Symptoms Musculoskeletal: Reports: No Symptoms Skin: Reports: Other Neurological: Reports: No Symptoms Psychiatric: Reports: No Symptoms - Patient Data Vitals - Most Recent: Last Vital Signs Temp 99.0 F 09/22/17 11:48 Pulse 99 09/22/17 11:48 Resp 20 09/22/17 11:48 BP 155/72 H 09/22/17 11:48 Pulse Ox 93 L 09/22/17 11:48 Weight - Most Recent: 122.9 kg I&O - Last 24 Hours: Intake & Output 09/22/17 09/22/17 09/22/17 06:59 14:59 22:59 Intake Total 779 682 7248 Output Total 1330 875 Balance -1030 300 275 Lab Results Last 24 Hours: Laboratory Results - last 24 hr 09/22/17 09/22/17 Range/Units 05:40 05:40 WBC 11.07 H (4.0-11.0) K/uL RBC 4.57 (4.50-5.90) M/uL Hgb 14.3 (13.0-17.0) g/dL Hct 42.5 (38.0-50.0) % MCV 93.0 (80.0-98.0) fL MCH 31.3 (27.0-32.0) pg MCHC 33.6 (31.0-37.0) g/dL RDW Std Deviation 45.5 (28.0-62.0) fl RDW Coeff of Shad 14 (11.0-15.0) % Plt Count 272 (150-400) K/uL MPV 10.10 (7.40-12.00) fL Neut % (Auto) 72.0 (48.0-80.0) % Lymph % (Auto) 13.8 L (16.0-40.0) % [place] % (Auto) 7.9 (0.0-15.0) % Eos % (Auto) 5.8 (0.0-7.0) % Baso % (Auto) 0.5 (0.0-1.5) % Neut # (Auto) 8.0 H (1.4-5.7) K/uL Lymph # (Auto) 1.5 (0.6-2.4) K/uL [place] # (Auto) 0.9 H (0.0-0.8) K/uL Eos # (Auto) 0.6 (0.0-0.7) K/uL Baso # (Auto) 0.1 (0.0-0.1) K/uL Nucleated RBC % 0.0 /100WBC Nucleated RBCs # 0 K/uL Sodium 138 (136-146) mmol/L Potassium 4.2 (3.5-5.1) mmol/L Chloride 102 (98-110) mmol/L Carbon Dioxide 27 (21-31) mmol/L BUN 12 (6.0-23.0) mg/dL Creatinine 0.8 (0.6-1.5) mg/dL Est Cr Clr Drug Dosing 121.34 mL/min Estimated GFR (MDRD) > 60.0 ml/min Glucose 92 (60-110) mg/dL Calcium 8.4 L (8.8-10.8) mg/dL Nitin Results Last 24 Hours: Microbiology 09/18/17 10:52 Aerobic Blood Culture - Preliminary Blood - Venous - Lab Draw NO GROWTH AFTER 4 DAYS Anaerobic Blood Culture - Preliminary NO GROWTH AFTER 4 DAYS 09/18/17 10:52 Aerobic Blood Culture - Preliminary Blood - Venous NO GROWTH AFTER 4 DAYS Anaerobic Blood Culture - Preliminary NO GROWTH AFTER 4 DAYS 09/19/17 07:03 Aerobic Blood Culture - Preliminary Blood - Venous - Lab Draw NO GROWTH AFTER 3 DAYS Anaerobic Blood Culture - Preliminary NO GROWTH AFTER 3 DAYS 09/19/17 06:50 Aerobic Blood Culture - Preliminary Blood - Venous NO GROWTH AFTER 3 DAYS Anaerobic Blood Culture - Preliminary NO GROWTH AFTER 3 DAYS Med Orders - Current: Current Medications Acetaminophen (Tylenol) 650 mg PO Q4H PRN PRN Reason: Fever Last Admin: 09/20/17 23:32 Dose: 650 mg Albuterol/Ipratropium (Duoneb 3.0-0.5 Mg/3 Ml) 3 ml NEB Q4HRRT PRN PRN Reason: Wheezing Last Admin: 09/20/17 13:13 Dose: 3 ml Enoxaparin Sodium (Lovenox) 40 mg SUBCUT Q24H [facility] Last Admin: 09/22/17 13:54 Dose: 40 mg Levofloxacin/Dextrose 750 mg/ (Premix) 150 mls @ 100 mls/hr IV Q24H [facility] Last Admin: 09/22/17 13:48 Dose: 100 mls/hr Piperacillin Sod/Tazobactam (Sod 4.5 gm/ Sodium Chloride) 100 mls @ 200 mls/hr IV Q6H [facility] Last Admin: 09/22/17 15:48 Dose: 200 mls/hr Linezolid 600 mg/ Premix 300 mls @ 300 mls/hr IV Q12H [facility] Last Admin: 09/22/17 08:53 Dose: 300 mls/hr Ibuprofen (Motrin) 400 mg PO Q6H PRN PRN Reason: Pain Last Admin: 09/21/17 09:39 Dose: 400 mg Morphine Sulfate (Morphine) 2 mg IVPUSH Q2H PRN PRN Reason: Pain Last Admin: 09/20/17 12:09 Dose: 2 mg Ondansetron HCl (Zofran) 4 mg IVPUSH Q4H PRN PRN Reason: Nausea/Vomiting Last Admin: 09/18/17 09:41 Dose: 4 mg Temazepam (Restoril) 15 mg PO BEDTIME PRN PRN Reason: Insomnia Tramadol HCl (Ultram) 50 mg PO Q4H PRN PRN Reason: Pain Last Admin: 09/22/17 16:30 Dose: 50 mg Discontinued Medications Diphtheria/Tetanus/Acell Pertussis (Adacel) 0.5 ml IM .ONCE ONE Stop: 09/15/17 21:49 Last Admin: 09/15/17 21:55 Dose: 0.5 ml Enoxaparin Sodium (Lovenox) 120 mg SUBCUT ONETIME STA Stop: 09/18/17 13:43 Last Admin: 09/18/17 14:02 Dose: 120 mg Enoxaparin Sodium (Lovenox) 40 mg SUBCUT Q24H [facility] Last Admin: 09/18/17 14:43 Dose: Not Given Furosemide (Lasix) 40 mg IVPUSH NOW STA Stop: 09/20/17 01:28 Last Admin: 09/20/17 01:39 Dose: 40 mg Furosemide (Lasix) 40 mg IVPUSH NOW ONE Stop: 09/20/17 23:50 Last Admin: 09/21/17 00:04 Dose: 40 mg Hydromorphone HCl (Dilaudid) 2 mg IVPUSH ONETIME ONE Stop: 09/15/17 21:37 Last Admin: 09/15/17 21:41 Dose: 2 mg Sodium Chloride (Normal Saline) 1,000 mls @ 999 mls/hr IV STAT ONE Stop: 09/15/17 21:28 Last Admin: 09/15/17 20:40 Dose: 999 mls/hr Vancomycin HCl 1 gm/ Sodium (Chloride) 250 mls @ 250 mls/hr IV ONETIME ONE Stop: 09/15/17 22:23 Last Infusion: 09/15/17 22:40 Dose: Infused Sodium Chloride (Normal Saline) 1,000 mls @ 999 mls/hr IV STAT ONE Stop: 09/15/17 22:24 Last Infusion: 09/15/17 23:10 Dose: Infused Piperacillin Sod/Tazobactam (Sod 3.375 gm/ Sodium Chloride) 50 mls @ 100 mls/ hr IV Q6H [facility] Last Admin: 09/17/17 10:08 Dose: 100 mls/hr Vancomycin HCl 1.5 gm/ Sodium (Chloride) 500 mls @ 333.333 mls/hr IV Q8H [facility] Vancomycin HCl 2 gm/ Sodium (Chloride) 500 mls @ 333.333 mls/hr IV Q8H [facility] Last Infusion: 09/16/17 03:25 Dose: Infused Vancomycin HCl 1.5 gm/ Sodium (Chloride) 500 mls @ 333.333 mls/hr IV Q8H [facility] Vancomycin HCl 1.5 gm/ Sodium (Chloride) 500 mls @ 333.333 mls/hr IV Q8H [facility] Last Admin: 09/17/17 10:40 Dose: 333.333 mls/hr Daptomycin 500 mg/ Sodium (Chloride) 10 mls @ 300 mls/hr IV Q24H [facility] Last Admin: 09/18/17 14:01 Dose: 300 mls/hr Sodium Chloride (Normal Saline) 1,000 mls @ 100 mls/hr IV STAT [facility] Last Infusion: 09/18/17 17:54 Dose: Infused Piperacillin Sod/Tazobactam (Sod 4.5 gm/ Sodium Chloride) 100 mls @ 200 mls/hr IV Q6H [facility] Last Admin: 09/18/17 17:20 Dose: Not Given Vancomycin HCl 1.75 gm/ Sodium (Chloride) 500 mls @ 250 mls/hr IV Q8H [facility] Last Admin: 09/20/17 09:42 Dose: Not Given Sodium Chloride (Normal Saline) 1,000 mls @ 100 mls/hr IV STAT [facility] Last Admin: 09/19/17 09:43 Dose: 100 mls/hr Influenza Virus Vaccine (Pharmacy To Dose - Influenza Vaccine) 1 each IM ONETIME ONE Stop: 09/15/17 22:23 Influenza Virus Vaccine (Fluarix Quad [id number]) 60 mcg IM .ONCE ONE Stop: 09/16/17 10:01 Last Admin: 09/16/17 10:27 Dose: 60 mcg Iopamidol (Isovue Multipack-370 (76%)) 50 ml IVPUSH ONETIME STA Stop: 09/18/17 13:43 Last Admin: 09/18/17 14:00 Dose: 50 ml Morphine Sulfate (Morphine) 4 mg IVPUSH Q1H PRN PRN Reason: Pain Last Admin: 09/17/17 12:32 Dose: 4 mg Ondansetron HCl (Zofran) 4 mg IVPUSH ONETIME ONE Stop: 09/15/17 21:37 Last Admin: 09/15/17 21:40 Dose: 4 mg Vancomycin HCl (Pharmacy To Dose - Vancomycin) 1 dose .XX ASDIRECTED [facility] Vancomycin HCl (Pharmacy To Dose - Vancomycin) 1 dose .XX ASDIRECTED [facility] - Exam General: Alert, Oriented HEENT: Pupils Equal, Pupils Reactive, EOMI Neck: Supple, Trachea Midline Lungs: Clear to Auscultation, Normal Respiratory Effort Cardiovascular: Regular Rate, Regular Rhythm GI/Abdominal Exam: Normal Bowel Sounds, Soft, Non-Tender Back Exam: Normal Inspection, Full Range of Motion Skin: Other (bilateral erythematous rash ) Neurological: No New Focal Deficit Psy/Mental Status: Alert, Normal Affect, Normal Mood - Problem List Review Problem List Initiated/Reviewed/Updated: Yes - Plan Plan:: 36 yo male admitted with bilateral lower extremity cellulitis who has developed pneumonia HAP: continue linezolid, zosyn, and levaquin, leukocytosis is improving 11.07 bilateral leg cellulitis: continue antibiotics, wound care with aquasol with gauze wrapping
[2017-09-22] MEDS: Ibuprofen 400 MG Tab PO PRN (18:37)
[2017-09-23] MEDS: Piperacillin/Tazobactam 4.5 GM in Sodium Chloride 0.9% 100 ML IV SCH ×5 (03:50→23:40)
[2017-09-23 05:51] LABS: CHLORIDE,CL 107 mmol/L (98-110); SODIUM,NA 141 mmol/L (136-146)
[2017-09-23] MEDS: Linezolid 600 MG in Premix Bag 1 BAG IV SCH ×2 (08:59→22:35)
--- NOTE | 2017-09-23 11:36 | PCM.PN ---
- General Info Date of Service: 09/23/17 Functional Status: Reports: Pain Controlled, Tolerating Diet - Review of Systems General: Reports: No Symptoms HEENT: Reports: No Symptoms Pulmonary: Reports: No Symptoms Cardiovascular: Reports: No Symptoms Gastrointestinal: Reports: No Symptoms Genitourinary: Reports: No Symptoms Musculoskeletal: Reports: No Symptoms Skin: Reports: Other (improving) Neurological: Reports: No Symptoms Psychiatric: Reports: No Symptoms - Patient Data Vitals - Most Recent: Last Vital Signs Temp 98.5 F 09/23/17 08:00 Pulse 100 09/23/17 08:00 Resp 22 H 09/23/17 08:00 BP 135/101 H 09/23/17 08:00 Pulse Ox 90 L 09/23/17 08:00 Weight - Most Recent: 122.9 kg I&O - Last 24 Hours: Intake & Output 09/22/17 09/23/17 09/23/17 22:59 06:59 14:59 Intake Total 1150 750 Output Total 875 650 Balance 275 100 Lab Results Last 24 Hours: Laboratory Results - last 24 hr 09/23/17 09/23/17 Range/Units 05:14 05:14 WBC 7.65 (4.0-11.0) K/uL RBC 4.43 L (4.50-5.90) M/uL Hgb 13.6 (13.0-17.0) g/dL Hct 41.0 (38.0-50.0) % MCV 92.6 (80.0-98.0) fL MCH 30.7 (27.0-32.0) pg MCHC 33.2 (31.0-37.0) g/dL RDW Std Deviation 44.5 (28.0-62.0) fl RDW Coeff of Shad 13 (11.0-15.0) % Plt Count 254 (150-400) K/uL MPV 9.90 (7.40-12.00) fL Neut % (Auto) 54.3 (48.0-80.0) % Lymph % (Auto) 23.4 (16.0-40.0) % [place] % (Auto) 9.4 (0.0-15.0) % Eos % (Auto) 11.9 H (0.0-7.0) % Baso % (Auto) 1.0 (0.0-1.5) % Neut # (Auto) 4.2 (1.4-5.7) K/uL Lymph # (Auto) 1.8 (0.6-2.4) K/uL [place] # (Auto) 0.7 (0.0-0.8) K/uL Eos # (Auto) 0.9 H (0.0-0.7) K/uL Baso # (Auto) 0.1 (0.0-0.1) K/uL Nucleated RBC % 0.0 /100WBC Nucleated RBCs # 0 K/uL Sodium 141 (136-146) mmol/L Potassium 3.6 (3.5-5.1) mmol/L Chloride 107 (98-110) mmol/L Carbon Dioxide 26 (21-31) mmol/L BUN 11 (6.0-23.0) mg/dL Creatinine 0.7 (0.6-1.5) mg/dL Est Cr Clr Drug Dosing 138.68 mL/min Estimated GFR (MDRD) > 60.0 ml/min Glucose 92 (60-110) mg/dL Calcium 8.0 L (8.8-10.8) mg/dL Nitin Results Last 24 Hours: Microbiology 09/19/17 07:03 Aerobic Blood Culture - Preliminary Blood - Venous - Lab Draw NO GROWTH AFTER 4 DAYS Anaerobic Blood Culture - Preliminary NO GROWTH AFTER 4 DAYS 09/19/17 06:50 Aerobic Blood Culture - Preliminary Blood - Venous NO GROWTH AFTER 4 DAYS Anaerobic Blood Culture - Preliminary NO GROWTH AFTER 4 DAYS 09/18/17 10:52 Aerobic Blood Culture - Preliminary Blood - Venous - Lab Draw NO GROWTH AFTER 4 DAYS Anaerobic Blood Culture - Preliminary NO GROWTH AFTER 4 DAYS 09/18/17 10:52 Aerobic Blood Culture - Preliminary Blood - Venous NO GROWTH AFTER 4 DAYS Anaerobic Blood Culture - Preliminary NO GROWTH AFTER 4 DAYS Med Orders - Current: Current Medications Acetaminophen (Tylenol) 650 mg PO Q4H PRN PRN Reason: Fever Last Admin: 09/20/17 23:32 Dose: 650 mg Albuterol/Ipratropium (Duoneb 3.0-0.5 Mg/3 Ml) 3 ml NEB Q4HRRT PRN PRN Reason: Wheezing Last Admin: 09/20/17 13:13 Dose: 3 ml Enoxaparin Sodium (Lovenox) 40 mg SUBCUT Q24H [facility] Last Admin: 09/22/17 13:54 Dose: 40 mg Levofloxacin/Dextrose 750 mg/ (Premix) 150 mls @ 100 mls/hr IV Q24H [facility] Last Admin: 09/22/17 13:48 Dose: 100 mls/hr Piperacillin Sod/Tazobactam (Sod 4.5 gm/ Sodium Chloride) 100 mls @ 200 mls/hr IV Q6H [facility] Last Admin: 09/23/17 10:58 Dose: 200 mls/hr Linezolid 600 mg/ Premix 300 mls @ 300 mls/hr IV Q12H [facility] Last Admin: 09/23/17 08:59 Dose: 300 mls/hr Ibuprofen (Motrin) 400 mg PO Q6H PRN PRN Reason: Pain Last Admin: 09/22/17 18:37 Dose: 400 mg Methylprednisolone Sodium Succinate (Solu-Medrol) 40 mg IVPUSH Q8H [facility] Morphine Sulfate (Morphine) 2 mg IVPUSH Q2H PRN PRN Reason: Pain Last Admin: 09/20/17 12:09 Dose: 2 mg Ondansetron HCl (Zofran) 4 mg IVPUSH Q4H PRN PRN Reason: Nausea/Vomiting Last Admin: 09/18/17 09:41 Dose: 4 mg Temazepam (Restoril) 15 mg PO BEDTIME PRN PRN Reason: Insomnia Tramadol HCl (Ultram) 50 mg PO Q4H PRN PRN Reason: Pain Last Admin: 09/22/17 16:30 Dose: 50 mg Discontinued Medications Diphtheria/Tetanus/Acell Pertussis (Adacel) 0.5 ml IM .ONCE ONE Stop: 09/15/17 21:49 Last Admin: 09/15/17 21:55 Dose: 0.5 ml Enoxaparin Sodium (Lovenox) 120 mg SUBCUT ONETIME STA Stop: 09/18/17 13:43 Last Admin: 09/18/17 14:02 Dose: 120 mg Enoxaparin Sodium (Lovenox) 40 mg SUBCUT Q24H [facility] Last Admin: 09/18/17 14:43 Dose: Not Given Furosemide (Lasix) 40 mg IVPUSH NOW STA Stop: 09/20/17 01:28 Last Admin: 09/20/17 01:39 Dose: 40 mg Furosemide (Lasix) 40 mg IVPUSH NOW ONE Stop: 09/20/17 23:50 Last Admin: 09/21/17 00:04 Dose: 40 mg Hydromorphone HCl (Dilaudid) 2 mg IVPUSH ONETIME ONE Stop: 09/15/17 21:37 Last Admin: 09/15/17 21:41 Dose: 2 mg Sodium Chloride (Normal Saline) 1,000 mls @ 999 mls/hr IV STAT ONE Stop: 09/15/17 21:28 Last Admin: 09/15/17 20:40 Dose: 999 mls/hr Vancomycin HCl 1 gm/ Sodium (Chloride) 250 mls @ 250 mls/hr IV ONETIME ONE Stop: 09/15/17 22:23 Last Infusion: 09/15/17 22:40 Dose: Infused Sodium Chloride (Normal Saline) 1,000 mls @ 999 mls/hr IV STAT ONE Stop: 09/15/17 22:24 Last Infusion: 09/15/17 23:10 Dose: Infused Piperacillin Sod/Tazobactam (Sod 3.375 gm/ Sodium Chloride) 50 mls @ 100 mls/ hr IV Q6H [facility] Last Admin: 09/17/17 10:08 Dose: 100 mls/hr Vancomycin HCl 1.5 gm/ Sodium (Chloride) 500 mls @ 333.333 mls/hr IV Q8H [facility] Vancomycin HCl 2 gm/ Sodium (Chloride) 500 mls @ 333.333 mls/hr IV Q8H [facility] Last Infusion: 09/16/17 03:25 Dose: Infused Vancomycin HCl 1.5 gm/ Sodium (Chloride) 500 mls @ 333.333 mls/hr IV Q8H [facility] Vancomycin HCl 1.5 gm/ Sodium (Chloride) 500 mls @ 333.333 mls/hr IV Q8H [facility] Last Admin: 09/17/17 10:40 Dose: 333.333 mls/hr Daptomycin 500 mg/ Sodium (Chloride) 10 mls @ 300 mls/hr IV Q24H [facility] Last Admin: 09/18/17 14:01 Dose: 300 mls/hr Sodium Chloride (Normal Saline) 1,000 mls @ 100 mls/hr IV STAT [facility] Last Infusion: 09/18/17 17:54 Dose: Infused Piperacillin Sod/Tazobactam (Sod 4.5 gm/ Sodium Chloride) 100 mls @ 200 mls/hr IV Q6H [facility] Last Admin: 09/18/17 17:20 Dose: Not Given Vancomycin HCl 1.75 gm/ Sodium (Chloride) 500 mls @ 250 mls/hr IV Q8H [facility] Last Admin: 09/20/17 09:42 Dose: Not Given Sodium Chloride (Normal Saline) 1,000 mls @ 100 mls/hr IV STAT [facility] Last Admin: 09/19/17 09:43 Dose: 100 mls/hr Influenza Virus Vaccine (Pharmacy To Dose - Influenza Vaccine) 1 each IM ONETIME ONE Stop: 09/15/17 22:23 Influenza Virus Vaccine (Fluarix Quad [id number]) 60 mcg IM .ONCE ONE Stop: 09/16/17 10:01 Last Admin: 09/16/17 10:27 Dose: 60 mcg Iopamidol (Isovue Multipack-370 (76%)) 50 ml IVPUSH ONETIME STA Stop: 09/18/17 13:43 Last Admin: 09/18/17 14:00 Dose: 50 ml Morphine Sulfate (Morphine) 4 mg IVPUSH Q1H PRN PRN Reason: Pain Last Admin: 09/17/17 12:32 Dose: 4 mg Ondansetron HCl (Zofran) 4 mg IVPUSH ONETIME ONE Stop: 09/15/17 21:37 Last Admin: 09/15/17 21:40 Dose: 4 mg Vancomycin HCl (Pharmacy To Dose - Vancomycin) 1 dose .XX ASDIRECTED [facility] Vancomycin HCl (Pharmacy To Dose - Vancomycin) 1 dose .XX ASDIRECTED [facility] - Exam General: Alert, Oriented HEENT: Pupils Equal, EOMI Neck: Supple, Trachea Midline Lungs: Wheezing Cardiovascular: Regular Rate, Regular Rhythm GI/Abdominal Exam: Normal Bowel Sounds, Soft Back Exam: Normal Inspection, Full Range of Motion Extremities: Normal Inspection, Normal Range of Motion - Problem List Review Problem List Initiated/Reviewed/Updated: Yes - My Orders Last 24 Hours: My Active Orders 09/23/17 11:15 methylPREDNISolone Sod Succ [Solu-MEDROL] 40 mg IVPUSH Q8H 09/24/17 05:11 BASIC METABOLIC PANEL,BMP [CHEM] AM CBC WITH AUTO DIFF [HEME] AM 09/25/17 05:11 BASIC METABOLIC PANEL,BMP [CHEM] AM CBC WITH AUTO DIFF [HEME] AM 09/26/17 05:11 BASIC METABOLIC PANEL,BMP [CHEM] AM CBC WITH AUTO DIFF [HEME] AM 09/27/17 05:11 BASIC METABOLIC PANEL,BMP [CHEM] AM CBC WITH AUTO DIFF [HEME] AM - Plan Plan:: 36 yo male admitted with bilateral lower extremity cellulitis who has developed pneumonia HAP: continue linezolid, zosyn, and levaquin, leukocytosis resolving wbc 7.65 bilateral leg cellulitis: continue antibiotics, wound care with aquasol with gauze wrapping. wounds are improving the left lower extremity wound is closed. contact dermatitis/expiratory wheezing: start solumedrol and continue duonebs prn. SPO2 in 90's in RA Monitor patient for one more day. Anticipate discharge in 1-2 days.
[2017-09-23] MEDS: methylPREDNISolone Sodium Succinate 40 MG/1 ML SDV IVPUSH SCH ×2 (11:42→18:26)
[2017-09-23] MEDS: Levofloxacin/Dextrose 5%-Water 750 MG in Premix Bag 1 BAG IV SCH (13:58)
[2017-09-23] MEDS: Enoxaparin 40 MG/0.4 ML Syringe SUBCUT SCH (14:02)
[2017-09-23] MEDS: Ibuprofen 400 MG Tab PO PRN (14:23)
[2017-09-23] MEDS: traMADol 50 MG Tab PO PRN (16:34)
[2017-09-24] MEDS: methylPREDNISolone Sodium Succinate 40 MG/1 ML SDV IVPUSH SCH (03:06)
[2017-09-24] MEDS: Piperacillin/Tazobactam 4.5 GM in Sodium Chloride 0.9% 100 ML IV SCH (04:42)
[2017-09-24 05:54] LABS: CHLORIDE,CL 109 mmol/L (98-110); SODIUM,NA 141 mmol/L (136-146)
--- NOTE | 2017-09-24 09:20 | PCM.DCSUM1 ---
<Madeleine Story - Last Filed: 09/29/17 18:04> Discharge Summary - Hospital Course Free Text/Narrative:: 36-year-old male with no significant past medical history that presented to the emergency department combining of bilateral leg swelling and redness and discomfort. As per the patient, he has been wearing these new leather boots at work for prolonged periods of time, that he has been wearing these for 16-18 hour shifts. He noticed some discomfort and took issues often noticed a significant amount of redness and felt he needed to get checked out. He tells me that this happened a couple months ago and it resulted in him being admitted to the hospital for IV antibiotics. . During the course of hospitlization He had hospital acquired pneumonia where linezolid, zosyn and levaquin was started. He was noted to be wheezing SPO2 in 90's. Duonebs and IV solumedrol started where his rash significantly improved. PT was consulted for wound care with aquaseal dressing and guaze wrapping. His wbc has improved to 7.65 and cellulitis/contact dermatitis has improved. He was discharged with PO bactrim, PO prednisone and to follow up PCP within a week. - Discharge Data Discharge Date: 09/24/17 Discharge Disposition: Home, Self-Care 01 Condition: Good - Patient Summary/Data Consults: Consultations 09/17/17 08:57 Consult to Physical Therapy [PT Evaluation and Treatment] [CONS] Routine - Discharge Plan Prescriptions/Med Rec: Prednisone [IJD: predniSONE] 40 mg PO WITHBREAKFAST #10 tab Sulfamethoxazole/Trimethoprim [Bactrim Ds Tablet] 1 each PO Q12H 10 Days #20 tablet traMADol [Ultram] 50 mg PO Q8H 21 Days #7 tablet Home Medications: Home Meds Sulfamethoxazole/Trimethoprim [Bactrim Ds Tablet] 1 each PO Q12H 10 Days #20 tablet 09/18/17 [Rx] traMADol [Ultram] 50 mg PO Q8H 21 Days #7 tablet 09/18/17 [Rx] Prednisone [IJD: predniSONE] 40 mg PO WITHBREAKFAST #10 tab 09/24/17 [Rx] Patient Handouts: Tramadol tablets, Cellulitis, Adult, [id number], Prednisone tablets, Sulfamethoxazole; Trimethoprim, SMX-TMP tablets Referrals: Lauro Irwin MD [Physician] - 09/29/17 2:00 pm - General Info Date of Service: 09/24/17 Functional Status: Reports: Pain Controlled, Tolerating Diet - Review of Systems General: Reports: No Symptoms HEENT: Reports: No Symptoms Pulmonary: Reports: No Symptoms Cardiovascular: Reports: No Symptoms Gastrointestinal: Reports: No Symptoms Genitourinary: Reports: No Symptoms Musculoskeletal: Reports: No Symptoms Skin: Reports: Other (improved) Neurological: Reports: No Symptoms Psychiatric: Reports: No Symptoms - Patient Data Vitals - Most Recent: Last Vital Signs Temp 98.5 F 09/24/17 04:00 Pulse 102 H 09/24/17 04:00 Resp 18 09/24/17 04:00 BP 137/78 09/24/17 04:00 Pulse Ox 94 L 09/24/17 04:00 Weight - Most Recent: 270 lb 15.17 oz I&O - Last 24 hours: Intake & Output 09/23/17 09/24/17 09/24/17 22:59 06:59 14:59 Intake Total 1023 1100 Output Total 900 1150 Balance 123 -50 Lab Results - Last 24 hrs: Laboratory Results - last 24 hr 09/24/17 09/24/17 Range/Units 05:24 05:24 WBC 12.48 H (4.0-11.0) K/uL RBC 4.88 (4.50-5.90) M/uL Hgb 15.0 (13.0-17.0) g/dL Hct 43.8 (38.0-50.0) % MCV 89.8 (80.0-98.0) fL MCH 30.7 (27.0-32.0) pg MCHC 34.2 (31.0-37.0) g/dL RDW Std Deviation 42.4 (28.0-62.0) fl RDW Coeff of Shad 13 (11.0-15.0) % Plt Count 321 (150-400) K/uL MPV 9.90 (7.40-12.00) fL Neut % (Auto) 89.9 H (48.0-80.0) % Lymph % (Auto) 7.4 L (16.0-40.0) % Curry % (Auto) 2.4 (0.0-15.0) % Eos % (Auto) 0.1 (0.0-7.0) % Baso % (Auto) 0.2 (0.0-1.5) % Neut # (Auto) 11.2 H (1.4-5.7) K/uL Lymph # (Auto) 0.9 (0.6-2.4) K/uL Curry # (Auto) 0.3 (0.0-0.8) K/uL Eos # (Auto) 0.0 (0.0-0.7) K/uL Baso # (Auto) 0.0 (0.0-0.1) K/uL Nucleated RBC % 0.0 /100WBC Nucleated RBCs # 0 K/uL Sodium 141 (136-146) mmol/L Potassium 4.0 (3.5-5.1) mmol/L Chloride 109 (98-110) mmol/L Carbon Dioxide 21 (21-31) mmol/L BUN 14 (6.0-23.0) mg/dL Creatinine 0.8 (0.6-1.5) mg/dL Est Cr Clr Drug Dosing 121.34 mL/min Estimated GFR (MDRD) > 60.0 ml/min Glucose 153 H (60-110) mg/dL Calcium 8.6 L (8.8-10.8) mg/dL MARIZA Results - Last 24 hrs: Microbiology 09/19/17 07:03 Aerobic Blood Culture - Final Blood - Venous - Lab Draw NO GROWTH AFTER 5 DAYS Anaerobic Blood Culture - Final NO GROWTH AFTER 5 DAYS 09/19/17 06:50 Aerobic Blood Culture - Final Blood - Venous NO GROWTH AFTER 5 DAYS Anaerobic Blood Culture - Final NO GROWTH AFTER 5 DAYS 09/18/17 10:52 Aerobic Blood Culture - Final Blood - Venous - Lab Draw NO GROWTH AFTER 5 DAYS Anaerobic Blood Culture - Final NO GROWTH AFTER 5 DAYS 09/18/17 10:52 Aerobic Blood Culture - Final Blood - Venous NO GROWTH AFTER 5 DAYS Anaerobic Blood Culture - Final NO GROWTH AFTER 5 DAYS Med Orders - Current: Current Medications Acetaminophen (Tylenol) 650 mg PO Q4H PRN PRN Reason: Fever Last Admin: 09/20/17 23:32 Dose: 650 mg Albuterol/Ipratropium (Duoneb 3.0-0.5 Mg/3 Ml) 3 ml NEB Q4HRRT PRN PRN Reason: Wheezing Last Admin: 09/20/17 13:13 Dose: 3 ml Enoxaparin Sodium (Lovenox) 40 mg SUBCUT Q24H [facility]IE Last Admin: 09/23/17 14:02 Dose: 40 mg Levofloxacin/Dextrose 750 mg/ (Premix) 150 mls @ 100 mls/hr IV Q24H [facility] Last Admin: 09/23/17 13:58 Dose: 100 mls/hr Linezolid 600 mg/ Premix 300 mls @ 300 mls/hr IV Q12H [facility] Last Infusion: 09/23/17 23:35 Dose: Infused Piperacillin Sod/Tazobactam (Sod 4.5 gm/ Sodium Chloride) 100 mls @ 200 mls/hr IV Q6H [facility] Last Infusion: 09/24/17 05:15 Dose: Infused Ibuprofen (Motrin) 400 mg PO Q6H PRN PRN Reason: Pain Last Admin: 09/23/17 14:23 Dose: 400 mg Methylprednisolone Sodium Succinate (Solu-Medrol) 40 mg IVPUSH Q8H [facility] Last Admin: 09/24/17 03:06 Dose: 40 mg Morphine Sulfate (Morphine) 2 mg IVPUSH Q2H PRN PRN Reason: Pain Last Admin: 09/20/17 12:09 Dose: 2 mg Ondansetron HCl (Zofran) 4 mg IVPUSH Q4H PRN PRN Reason: Nausea/Vomiting Last Admin: 09/18/17 09:41 Dose: 4 mg Temazepam (Restoril) 15 mg PO BEDTIME PRN PRN Reason: Insomnia Tramadol HCl (Ultram) 50 mg PO Q4H PRN PRN Reason: Pain Last Admin: 09/23/17 16:34 Dose: 50 mg Discontinued Medications Diphtheria/Tetanus/Acell Pertussis (Adacel) 0.5 ml IM .ONCE ONE Stop: 09/15/17 21:49 Last Admin: 09/15/17 21:55 Dose: 0.5 ml Enoxaparin Sodium (Lovenox) 120 mg SUBCUT ONETIME STA Stop: 09/18/17 13:43 Last Admin: 09/18/17 14:02 Dose: 120 mg Enoxaparin Sodium (Lovenox) 40 mg SUBCUT Q24H [facility] Last Admin: 09/18/17 14:43 Dose: Not Given Furosemide (Lasix) 40 mg IVPUSH NOW STA Stop: 09/20/17 01:28 Last Admin: 09/20/17 01:39 Dose: 40 mg Furosemide (Lasix) 40 mg IVPUSH NOW ONE Stop: 09/20/17 23:50 Last Admin: 09/21/17 00:04 Dose: 40 mg Hydromorphone HCl (Dilaudid) 2 mg IVPUSH ONETIME ONE Stop: 09/15/17 21:37 Last Admin: 09/15/17 21:41 Dose: 2 mg Sodium Chloride (Normal Saline) 1,000 mls @ 999 mls/hr IV STAT ONE Stop: 09/15/17 21:28 Last Admin: 09/15/17 20:40 Dose: 999 mls/hr Vancomycin HCl 1 gm/ Sodium (Chloride) 250 mls @ 250 mls/hr IV ONETIME ONE Stop: 09/15/17 22:23 Last Infusion: 09/15/17 22:40 Dose: Infused Sodium Chloride (Normal Saline) 1,000 mls @ 999 mls/hr IV STAT ONE Stop: 09/15/17 22:24 Last Infusion: 09/15/17 23:10 Dose: Infused Piperacillin Sod/Tazobactam (Sod 3.375 gm/ Sodium Chloride) 50 mls @ 100 mls/ hr IV Q6H [facility] Last Admin: 09/17/17 10:08 Dose: 100 mls/hr Vancomycin HCl 1.5 gm/ Sodium (Chloride) 500 mls @ 333.333 mls/hr IV Q8H [facility]IE Vancomycin HCl 2 gm/ Sodium (Chloride) 500 mls @ 333.333 mls/hr IV Q8H [facility] Last Infusion: 09/16/17 03:25 Dose: Infused Vancomycin HCl 1.5 gm/ Sodium (Chloride) 500 mls @ 333.333 mls/hr IV Q8H [facility] Vancomycin HCl 1.5 gm/ Sodium (Chloride) 500 mls @ 333.333 mls/hr IV Q8H [facility] Last Admin: 09/17/17 10:40 Dose: 333.333 mls/hr Daptomycin 500 mg/ Sodium (Chloride) 10 mls @ 300 mls/hr IV Q24H [facility] Last Admin: 09/18/17 14:01 Dose: 300 mls/hr Sodium Chloride (Normal Saline) 1,000 mls @ 100 mls/hr IV STAT [facility]IE Last Infusion: 09/18/17 17:54 Dose: Infused Piperacillin Sod/Tazobactam (Sod 4.5 gm/ Sodium Chloride) 100 mls @ 200 mls/hr IV Q6H [facility] Last Admin: 09/18/17 17:20 Dose: Not Given Vancomycin HCl 1.75 gm/ Sodium (Chloride) 500 mls @ 250 mls/hr IV Q8H [facility] Last Admin: 09/20/17 09:42 Dose: Not Given Piperacillin Sod/Tazobactam (Sod 4.5 gm/ Sodium Chloride) 100 mls @ 200 mls/hr IV Q6H [facility] Last Admin: 09/23/17 17:48 Dose: Not Given Sodium Chloride (Normal Saline) 1,000 mls @ 100 mls/hr IV STAT [facility] Last Admin: 09/19/17 09:43 Dose: 100 mls/hr Influenza Virus Vaccine (Pharmacy To Dose - Influenza Vaccine) 1 each IM ONETIME ONE Stop: 09/15/17 22:23 Influenza Virus Vaccine (Fluarix Quad [id number]) 60 mcg IM .ONCE ONE Stop: 09/16/17 10:01 Last Admin: 09/16/17 10:27 Dose: 60 mcg Iopamidol (Isovue Multipack-370 (76%)) 50 ml IVPUSH ONETIME STA Stop: 09/18/17 13:43 Last Admin: 09/18/17 14:00 Dose: 50 ml Morphine Sulfate (Morphine) 4 mg IVPUSH Q1H PRN PRN Reason: Pain Last Admin: 09/17/17 12:32 Dose: 4 mg Ondansetron HCl (Zofran) 4 mg IVPUSH ONETIME ONE Stop: 09/15/17 21:37 Last Admin: 09/15/17 21:40 Dose: 4 mg Vancomycin HCl (Pharmacy To Dose - Vancomycin) 1 dose .XX ASDIRECTED [facility] Vancomycin HCl (Pharmacy To Dose - Vancomycin) 1 dose .XX ASDIRECTED [facility] - Exam General: Reports: Alert, Oriented HEENT: Reports: Pupils Equal, Pupils Reactive, EOMI Lungs: Reports: Clear to Auscultation, Normal Respiratory Effort, Other. Denies : Wheezing Cardiovascular: Reports: Regular Rate, Regular Rhythm GI/Abdominal Exam: Normal Bowel Sounds, Soft, Non-Tender Back Exam: Reports: Normal Inspection, Full Range of Motion Skin: Reports: Ecchymosis, Other (improved rash and cellulitis) Neurological: Reports: No New Focal Deficit Psy/Mental Status: Reports: Alert, Normal Affect, Normal Mood *Q Meaningful Use (DIS) - VTE *Q VTE Criteria *Q: - Stroke *Q Stroke Criteria *Q: - AMI *Q AMI Criteria *Q: <Eleuterio Herbertjm - Last Filed: 09/30/17 17:29> Discharge Summary - Hospital Course Free Text/Narrative:: Patient seen and examined , agree with discharge summary. - Patient Summary/Data Consults: Consultations 09/17/17 08:57 Consult to Physical Therapy [PT Evaluation and Treatment] [CONS] Routine - Patient Data Vitals - Most Recent: Last Vital Signs Temp 98.2 F 09/24/17 08:00 Pulse 103 H 09/24/17 08:00 Resp 20 09/24/17 08:00 BP 140/96 H 09/24/17 08:00 Pulse Ox 93 L 09/24/17 08:00 Med Orders - Current: Current Medications Discontinued Medications Acetaminophen (Tylenol) 650 mg PO Q4H PRN PRN Reason: Fever Last Admin: 09/20/17 23:32 Dose: 650 mg Albuterol/Ipratropium (Duoneb 3.0-0.5 Mg/3 Ml) 3 ml NEB Q4HRRT PRN PRN Reason: Wheezing Last Admin: 09/20/17 13:13 Dose: 3 ml Diphtheria/Tetanus/Acell Pertussis (Adacel) 0.5 ml IM .ONCE ONE Stop: 09/15/17 21:49 Last Admin: 09/15/17 21:55 Dose: 0.5 ml Enoxaparin Sodium (Lovenox) 120 mg SUBCUT ONETIME STA Stop: 09/18/17 13:43 Last Admin: 09/18/17 14:02 Dose: 120 mg Enoxaparin Sodium (Lovenox) 40 mg SUBCUT Q24H [facility] Last Admin: 09/18/17 14:43 Dose: Not Given Enoxaparin Sodium (Lovenox) 40 mg SUBCUT Q24H [facility] Last Admin: 09/23/17 14:02 Dose: 40 mg Furosemide (Lasix) 40 mg IVPUSH NOW STA Stop: 09/20/17 01:28 Last Admin: 09/20/17 01:39 Dose: 40 mg Furosemide (Lasix) 40 mg IVPUSH NOW ONE Stop: 09/20/17 23:50 Last Admin: 09/21/17 00:04 Dose: 40 mg Hydromorphone HCl (Dilaudid) 2 mg IVPUSH ONETIME ONE Stop: 09/15/17 21:37 Last Admin: 09/15/17 21:41 Dose: 2 mg Sodium Chloride (Normal Saline) 1,000 mls @ 999 mls/hr IV STAT ONE Stop: 09/15/17 21:28 Last Admin: 09/15/17 20:40 Dose: 999 mls/hr Vancomycin HCl 1 gm/ Sodium (Chloride) 250 mls @ 250 mls/hr IV ONETIME ONE Stop: 09/15/17 22:23 Last Infusion: 09/15/17 22:40 Dose: Infused Sodium Chloride (Normal Saline) 1,000 mls @ 999 mls/hr IV STAT ONE Stop: 09/15/17 22:24 Last Infusion: 09/15/17 23:10 Dose: Infused Piperacillin Sod/Tazobactam (Sod 3.375 gm/ Sodium Chloride) 50 mls @ 100 mls/ hr IV Q6H [facility] Last Admin: 09/17/17 10:08 Dose: 100 mls/hr Vancomycin HCl 1.5 gm/ Sodium (Chloride) 500 mls @ 333.333 mls/hr IV Q8H [facility] Vancomycin HCl 2 gm/ Sodium (Chloride) 500 mls @ 333.333 mls/hr IV Q8H [facility] Last Infusion: 09/16/17 03:25 Dose: Infused Vancomycin HCl 1.5 gm/ Sodium (Chloride) 500 mls @ 333.333 mls/hr IV Q8H [facility] Vancomycin HCl 1.5 gm/ Sodium (Chloride) 500 mls @ 333.333 mls/hr IV Q8H [facility] Last Admin: 09/17/17 10:40 Dose: 333.333 mls/hr Daptomycin 500 mg/ Sodium (Chloride) 10 mls @ 300 mls/hr IV Q24H [facility] Last Admin: 09/18/17 14:01 Dose: 300 mls/hr Sodium Chloride (Normal Saline) 1,000 mls @ 100 mls/hr IV STAT [facility] Last Infusion: 09/18/17 17:54 Dose: Infused Levofloxacin/Dextrose 750 mg/ (Premix) 150 mls @ 100 mls/hr IV Q24H [facility] Last Admin: 09/23/17 13:58 Dose: 100 mls/hr Piperacillin Sod/Tazobactam (Sod 4.5 gm/ Sodium Chloride) 100 mls @ 200 mls/hr IV Q6H [facility] Last Admin: 09/18/17 17:20 Dose: Not Given Vancomycin HCl 1.75 gm/ Sodium (Chloride) 500 mls @ 250 mls/hr IV Q8H [facility] Last Admin: 09/20/17 09:42 Dose: Not Given Piperacillin Sod/Tazobactam (Sod 4.5 gm/ Sodium Chloride) 100 mls @ 200 mls/hr IV Q6H [facility] Last Admin: 09/23/17 17:48 Dose: Not Given Sodium Chloride (Normal Saline) 1,000 mls @ 100 mls/hr IV STAT [facility] Last Admin: 09/19/17 09:43 Dose: 100 mls/hr Linezolid 600 mg/ Premix 300 mls @ 300 mls/hr IV Q12H [facility] Last Infusion: 09/23/17 23:35 Dose: Infused Piperacillin Sod/Tazobactam (Sod 4.5 gm/ Sodium Chloride) 100 mls @ 200 mls/hr IV Q6H [facility] Last Infusion: 09/24/17 05:15 Dose: Infused Ibuprofen (Motrin) 400 mg PO Q6H PRN PRN Reason: Pain Last Admin: 09/23/17 14:23 Dose: 400 mg Influenza Virus Vaccine (Pharmacy To Dose - Influenza Vaccine) 1 each IM ONETIME ONE Stop: 09/15/17 22:23 Influenza Virus Vaccine (Fluarix Quad [id number]) 60 mcg IM .ONCE ONE Stop: 09/16/17 10:01 Last Admin: 09/16/17 10:27 Dose: 60 mcg Iopamidol (Isovue Multipack-370 (76%)) 50 ml IVPUSH ONETIME STA Stop: 09/18/17 13:43 Last Admin: 09/18/17 14:00 Dose: 50 ml Methylprednisolone Sodium Succinate (Solu-Medrol) 40 mg IVPUSH Q8H [facility] Last Admin: 09/24/17 03:06 Dose: 40 mg Morphine Sulfate (Morphine) 4 mg IVPUSH Q1H PRN PRN Reason: Pain Last Admin: 09/17/17 12:32 Dose: 4 mg Morphine Sulfate (Morphine) 2 mg IVPUSH Q2H PRN PRN Reason: Pain Last Admin: 09/20/17 12:09 Dose: 2 mg Ondansetron HCl (Zofran) 4 mg IVPUSH ONETIME ONE Stop: 09/15/17 21:37 Last Admin: 09/15/17 21:40 Dose: 4 mg Ondansetron HCl (Zofran) 4 mg IVPUSH Q4H PRN PRN Reason: Nausea/Vomiting Last Admin: 09/18/17 09:41 Dose: 4 mg Temazepam (Restoril) 15 mg PO BEDTIME PRN PRN Reason: Insomnia Tramadol HCl (Ultram) 50 mg PO Q4H PRN PRN Reason: Pain Last Admin: 09/23/17 16:34 Dose: 50 mg Vancomycin HCl (Pharmacy To Dose - Vancomycin) 1 dose .XX ASDIRECTED [facility] Vancomycin HCl (Pharmacy To Dose - Vancomycin) 1 dose .XX ASDIRECTED [facility] *Q Meaningful Use (DIS) - VTE *Q VTE Criteria *Q: - Stroke *Q Stroke Criteria *Q: - AMI *Q AMI Criteria *Q:
[2017-09-24 09:21] VITALS: BP 140/96
== END 2017-09-24 10:00 | disposition home or self-care (01) | DRG 383 ==
LOC: MW.ED 20:13 → MW.MS 21:26 → EEVIPCON 21:26
PROVIDERS: ADMIT Family Medicine; ATTEND Family Medicine
DX: L03.116 Cellulitis of left lower limb (principal); L03.115 Cellulitis of right lower limb; J18.9 Pneumonia, unspecified organism; Y95 Nosocomial condition; L25.9 Unspecified contact dermatitis, unspecified cause; D72.829 Elevated white blood cell count, unspecified; F17.200 Nicotine dependence, unspecified, uncomplicated
CPT/HCPCS: 36415; 71010; 71010-26; 71020; 71020-26; 71275; 71275-26; 80048; 80053; 80202; 82150; 82962; 83605; 83690; 85025; 87040; 87070; 87186; 87205; 90471; 90686; 90715; 96361; 96365; 96375; 97161-GP; 99282; 99284-25; A9270-GY; J0878; J1170; J1650; J1940; J1956; J2020; J2270; J2405; J2543; J2920; J3370; J7030; J7040; J7050; Q9967

== ENCOUNTER 2020-05-01 10:39 | Emergency (ER) | payer SELFPAY ==
[2020-05-01] MEDS ORDERED: Ketorolac 30 MG/ML SDV IVPUSH ONE (10:45)
[2020-05-01] MEDS ORDERED: Ondansetron 4 MG/2 ML SDV IVPUSH ONE (10:45)
[2020-05-01] MEDS ORDERED: Sodium Chloride 0.9% 1,000 ML IV ONE ×2 (10:45→12:59)
[2020-05-01] MEDS ORDERED: Sodium Chloride 0.9% 2.5 ML Syringe FLUSH PRN (10:46)
[2020-05-01] MEDS ORDERED: Sodium Chloride 0.9% 10 ML Syringe FLUSH PRN (10:46)
--- NOTE | 2020-05-01 10:51 | EDM.PDOC ---
ED HPI GENERAL MEDICAL PROBLEM - General Chief Complaint: Genitourinary Problem Stated Complaint: POSSIBLE KIDNEY STONES Time Seen by Provider: 05/01/20 10:41 Source of Information: Reports: Patient History Limitations: Reports: No Limitations - History of Present Illness INITIAL COMMENTS - FREE TEXT/NARRATIVE: HISTORY AND PHYSICAL: History of present illness: Patient is a 39-year-old male who presents to the emergency room with complaints of left-sided abdominal pain that radiates into his groin. He has had symptoms that have progressively gotten worse over the past 3 days. He also has some mild nausea, intermittent left testicular discomfort, and decreased urinary output. Patient denies any fever, chills, headache, change in vision, syncope or near syncope. Denies any chest pain, back pain, shortness of breath or cough. Denies any vomiting, diarrhea, constipation or dysuria. Has not noted any blood in urine or stool. Denies any concerns of STI, testicular redness/swelling/ tenderness. Patient has been eating and drinking appropriately. Review of systems: As per history of present illness and below otherwise all systems reviewed and negative. Past medical history: As per history of present illness and as reviewed below otherwise noncontributory. Surgical history: As per history of present illness and as reviewed below otherwise noncontributory. Social history: See social history for further information Family history: As per history of present illness and as reviewed below otherwise noncontributory. Physical exam: General: Well-developed and well-nourished 39-year-old male. Alert and oriented. Nontoxic-appearing and in no acute distress. HEENT: Atraumatic, normocephalic, pupils equal and reactive bilaterally, negative for conjunctival pallor or scleral icterus, mucous membranes moist, TMs normal bilaterally, throat clear, neck supple, nontender, trachea midline. No drooling or trismus noted. No meningeal signs. No hot potato voice noted. Lungs: Clear to auscultation, breath sounds equal bilaterally, chest nontender. Heart: S1S2, regular rate and rhythm without overt murmur Abdomen: Soft, obese, nontender. Negative for masses or hepatosplenomegaly. Negative for costovertebral tenderness. Pelvis is stable nontender. Genitourinary: Deferred. Skin: Intact, warm, dry. No lesions or rashes noted. Extremities: Atraumatic, moves all extremities per self without difficulty or deficits, negative for cords or calf pain. Neurovascular unremarkable. Neuro: Awake, alert, oriented. Cranial nerves II through XII unremarkable. Cere bellum unremarkable. Motor and sensory unremarkable throughout. Exam nonfocal. Notes: Patient denies any testicular swelling, redness, drainage or tenderness with palpation. He is concerned he has a kidney stone - no hx of kidney stones. CT shows bowel wall thickening and diverticuli within the sigmoid colon with surrounding inflammatory changes compatible with moderately severe diverticulitis. I did share this information with the patient, he states he does feel somewhat improved. We will give him his first doses of medications while here. Vital signs have improved. We discussed signs and symptoms that would prompt him to return to the emergency room. Medication, follow-up and supportive care measures were reviewed and discussed. Voices understanding and is agreeable to plan of care. Denies any further questions or concerns at this time. Diagnostics: CBC, CMP, UA, CT abdomen and pelvis without Therapeutics: IV fluid, Toradol, Zofran Prescription: Cipro, Flagyl x7 days Impression: Diverticulitis Plan: 1. Increase your oral fluids. Please add dietary fiber to your diet over the next several weeks. 2. Tylenol and/or Ibuprofen as needed for pain management. Take the Flagyl and Cipro as directed. Flagyl does interact with alcohol so please make sure you abstain while taking this medication. 3. Follow up with your primary care provider for reevaluation as we discussed. 4. Return to the ED as needed and as we discussed. Definitive disposition and diagnosis as appropriate pending reevaluation and review of above. left testicle Pain Score (Numeric/FACES): 8 - Related Data Allergies Allergy/AdvReac Type Severity Reaction Status Date / Time No Known Allergies Allergy Verified 05/01/20 10:49 Home Meds: Home Meds Ciprofloxacin [Ciprofloxacin HCl] 500 mg PO BID #14 tab 05/01/20 [Rx] metroNIDAZOLE [Flagyl] 500 mg PO BID #14 tab 05/01/20 [Rx] Past Medical History - Past Health History Medical/Surgical History: Denies Medical/Surgical History HEENT History: Reports: None Cardiovascular History: Reports: None Respiratory History: Reports: None Gastrointestinal History: Reports: Diverticulosis, None Other Gastrointestinal History: Diverticulitis Genitourinary History: Reports: None Musculoskeletal History: Reports: Other (See Below) Other Musculoskeletal History: R shoulder traumatic dislocation Neurological History: Reports: None Psychiatric History: Reports: None Endocrine/Metabolic History: Reports: None, Obesity/BMI 30+ Dermatologic History: Reports: None - Infectious Disease History Infectious Disease History: Reports: None - Past Surgical History GI Surgical History: Reports: None Musculoskeletal Surgical History: Reports: Other (See Below) Social & Family History - Family History Family Medical History: Noncontributory - Caffeine Use Caffeine Use: Reports: Coffee, Energy Drinks Caffeine Use Comment: 1 cup "every couple of days" - Living Situation & Occupation Occupation: Employed ED ROS GENERAL - Review of Systems Review Of Systems: Comprehensive ROS is negative, except as noted in HPI. ED EXAM, RENAL/ - Physical Exam Exam: See Below (See dictation) Course - Vital Signs Last Recorded V/S: Last Vital Signs Temp 95.6 F L 05/01/20 10:47 Pulse 82 05/01/20 13:04 Resp 17 05/01/20 13:04 BP 128/78 05/01/20 13:04 Pulse Ox 93 L 05/01/20 13:04 - Orders/Labs/Meds Orders: Active Orders 24 hr Category Date Time Status Bladder Scan [RC] ASDIRECTED Care 05/01/20 12:12 Active Sodium Chloride 0.9% [Normal Saline] 1,000 ml Med 05/01/20 12:59 Active IV STAT Sodium Chloride 0.9% [Saline Flush] Med 05/01/20 10:46 Active 10 ml FLUSH ASDIRECTED PRN Sodium Chloride 0.9% [Saline Flush] Med 05/01/20 10:46 Active 2.5 ml FLUSH ASDIRECTED PRN Saline Lock Insert [OM.PC] Stat Oth 05/01/20 10:46 Ordered Medication Orders Sodium Chloride (Normal Saline) 1,000 mls @ 200 mls/hr IV STAT ONE Stop: 05/01/20 17:58 Last Admin: 05/01/20 13:00 Dose: 200 mls/hr Documented by: GROTALI Sodium Chloride (Saline Flush) 10 ml FLUSH ASDIRECTED PRN PRN Reason: Keep Vein Open Last Admin: 05/01/20 10:58 Dose: 10 ml Documented by: GROTALI Sodium Chloride (Saline Flush) 2.5 ml FLUSH ASDIRECTED PRN PRN Reason: Keep Vein Open Last Admin: 05/01/20 10:58 Dose: 2.5 ml Documented by: EZRA Labs: Laboratory Tests 05/01/20 05/01/20 05/01/20 Range/Units 10:58 10:58 14:03 WBC 13.37 H (4.0-11.0) K/uL RBC 5.60 (4.50-5.90) M/uL Hgb 17.7 H (13.0-17.0) g/dL Hct 50.6 H (38.0-50.0) % MCV 90.4 (80.0-98.0) fL MCH 31.6 (27.0-32.0) pg MCHC 35.0 (31.0-37.0) g/dL RDW Std Deviation 41.5 (28.0-62.0) fl RDW Coeff of Shad 13 (11.0-15.0) % Plt Count 270 (150-400) K/uL MPV 10.60 (7.40-12.00) fL Neut % (Auto) 70.7 (48.0-80.0) % Lymph % (Auto) 18.2 (16.0-40.0) % [place] % (Auto) 9.6 (0.0-15.0) % Eos % (Auto) 1.3 (0.0-7.0) % Baso % (Auto) 0.2 (0.0-1.5) % Neut # (Auto) 9.4 H (1.4-5.7) K/uL Lymph # (Auto) 2.4 (0.6-2.4) K/uL [place] # (Auto) 1.3 H (0.0-0.8) K/uL Eos # (Auto) 0.2 (0.0-0.7) K/uL Baso # (Auto) 0.0 (0.0-0.1) K/uL Nucleated RBC % 0.0 /100WBC Nucleated RBCs # 0 K/uL Sodium 137 (136-148) mmol/L Potassium 3.8 (3.5-5.1) mmol/L Chloride 100 (98-107) mmol/L Carbon Dioxide 27.1 (21.0-32.0) mmol/L BUN 13 (7.0-18.0) mg/dL Creatinine 1.1 (0.8-1.3) mg/dL Est Cr Clr Drug Dosing 91.95 mL/min Estimated GFR (MDRD) > 60.0 ml/min Glucose 130 H (74-106) mg/dL Calcium 8.7 (8.5-10.1) mg/dL Total Bilirubin 1.3 H (0.2-1.0) mg/dL AST 15 (15-37) IU/L ALT 36 (14-63) IU/L Alkaline Phosphatase 78 (46-116) U/L Total Protein 8.1 (6.4-8.2) g/dL Albumin 3.8 (3.4-5.0) g/dL Globulin 4.3 H (2.6-4.0) g/dL Albumin/Globulin Ratio 0.9 (0.9-1.6) Urine Color DARK YELLOW Urine Appearance SLT CLOUDY Urine pH 5.5 (5.0-8.0) Ur Specific [place] >= 1.030 (1.001-1.035) Urine Protein 30 H (NEGATIVE) mg/dL Urine Glucose (UA) NEGATIVE (NEGATIVE) mg/dL Urine Ketones 15 H (NEGATIVE) mg/dL Urine Occult Blood MODERATE H (NEGATIVE) Urine Nitrite NEGATIVE (NEGATIVE) Urine Bilirubin SMALL H (NEGATIVE) Urine Ictotest NEGATIVE Urine Urobilinogen 4.0 H (<2.0) EU/dL Ur Leukocyte Esterase NEGATIVE (NEGATIVE) Urine RBC 0-2 (0-2/HPF) Urine WBC 1-5 (0-5/HPF) Ur Epithelial Cells RARE (NONE-FEW) Amorphous Sediment LIGHT (NEGATIVE) Urine Bacteria FEW (NEGATIVE) Fine Granular Casts 0-1 (NEGATIVE) Urine Mucus MODERATE (NONE-MOD) Meds: Medications Generic Name Dose Route Start Last Admin Trade Name Freq PRN Reason Stop Dose Admin Sodium Chloride 1,000 mls @ 200 mls/hr 05/01/20 12:59 05/01/20 13:00 Normal Saline IV 05/01/20 17:58 200 mls/hr STAT ONE Administration Sodium Chloride 10 ml 05/01/20 10:46 05/01/20 10:58 Saline Flush FLUSH 10 ml ASDIRECTED PRN Administration Keep Vein Open Sodium Chloride 2.5 ml 05/01/20 10:46 05/01/20 10:58 Saline Flush FLUSH 2.5 ml ASDIRECTED PRN Administration Keep Vein Open Discontinued Medications Generic Name Dose Route Start Last Admin Trade Name Dillon PRN Reason Stop Dose Admin Ciprofloxacin 500 mg 05/01/20 12:52 05/01/20 13:02 Ciprofloxacin Hcl PO 05/01/20 12:53 500 mg ONETIME ONE Administration Sodium Chloride 1,000 mls @ 999 mls/hr 05/01/20 10:45 05/01/20 10:58 Normal Saline IV 05/01/20 11:45 999 mls/hr STAT ONE Administration Metronidazole 500 mg/ Premix 100 mls @ 100 mls/hr 05/01/20 12:52 05/01/20 13:02 IV 05/01/20 13:51 100 mls/hr ONETIME ONE Administration Ketorolac Tromethamine 30 mg 05/01/20 10:45 05/01/20 10:58 Toradol IVPUSH 05/01/20 10:46 30 mg ONETIME ONE Administration Ondansetron HCl 4 mg 05/01/20 10:45 05/01/20 10:58 Zofran IVPUSH 05/01/20 10:46 4 mg ONETIME ONE Administration Departure - Departure Time of Disposition: 14:32 Disposition: Home, Self-Care 01 Clinical Impression: Diverticulitis - Discharge Information Prescriptions: Ciprofloxacin [Ciprofloxacin HCl] 500 mg PO BID #14 tab metroNIDAZOLE [Flagyl] 500 mg PO BID #14 tab Instructions: Diverticulitis, [id number] Referrals: PCP,None [Primary Care Provider] - Forms: ED Department Discharge Additional Instructions: The following information is given to patients seen in the emergency department who are being discharged to home. This information is to outline your options for follow-up care. We provide all patients seen in our emergency department with a follow-up referral. The need for follow-up, as well as the timing and circumstances, are variable depending upon the specifics of your emergency department visit. If you don't have a primary care physician on staff, we will provide you with a referral. We always advise you to contact your personal physician following an emergency department visit to inform them of the circumstance of the visit and for follow-up with them and/or the need for any referrals to a consulting specialist. The emergency department will also refer you to a specialist when appropriate. This referral assures that you have the opportunity for follow-up care with a specialist. All of these measure are taken in an effort to provide you with optimal care, which includes your follow-up. Under all circumstances we always encourage you to contact your private physician who remains a resource for coordinating your care. When calling for follow-up care, please make the office aware that this follow-up is from your recent emergency room visit. If for any reason you are refused follow-up, please contact the Emergency Department at and asked to speak to the emergency department charge nurse. [facility] [address] [place] [id number] [facility] [address] [place] [id number] 1. Increase your oral fluids. Please add dietary fiber to your diet over the next several weeks. 2. Tylenol and/or Ibuprofen as needed for pain management. Take the Flagyl and Cipro as directed. Flagyl does interact with alcohol so please make sure you abstain while taking this medication. 3. Follow up with your primary care provider for reevaluation as we discussed. 4. Return to the ED as needed and as we discussed. Sepsis Event Note (ED) - Evaluation Sepsis Screening Result: No Definite Risk - Focused Exam Vital Signs: Vital Signs Temp Pulse Resp BP Pulse Ox 05/01/20 13:04 82 17 128/78 93 L 05/01/20 10:47 95.6 F L 105 H 17 135/92 H 93 L - My Orders Last 24 Hours: My Active Orders 05/01/20 10:46 Sodium Chloride 0.9% [Saline Flush] 10 ml FLUSH ASDIRECTED PRN Sodium Chloride 0.9% [Saline Flush] 2.5 ml FLUSH ASDIRECTED PRN Saline Lock Insert [OM.PC] Stat 05/01/20 12:12 Bladder Scan [RC] ASDIRECTED 05/01/20 12:59 Sodium Chloride 0.9% [Normal Saline] 1,000 ml IV STAT - Assessment/Plan Last 24 Hours: My Active Orders 05/01/20 10:46 Sodium Chloride 0.9% [Saline Flush] 10 ml FLUSH ASDIRECTED PRN Sodium Chloride 0.9% [Saline Flush] 2.5 ml FLUSH ASDIRECTED PRN Saline Lock Insert [OM.PC] Stat 05/01/20 12:12 Bladder Scan [RC] ASDIRECTED 05/01/20 12:59 Sodium Chloride 0.9% [Normal Saline] 1,000 ml IV STAT
[2020-05-01 11:41] LABS: BLOOD UREA NITROGEN,BUN 13 mg/dL (7.0-18.0); CARBON DIOXIDE,CO2 27.1 mmol/L (21.0-32.0); CHLORIDE,CL 100 mmol/L (98-107); GLUCOSE RANDOM 130 mg/dL (74-106); POTASSIUM,K 3.8 mmol/L (3.5-5.1); SODIUM,NA 137 mmol/L (136-148)
--- NOTE | 2020-05-01 12:28 | CT ---
CT abdomen and pelvis Technique: Multiple axial sections were obtained from above the dome of the diaphragm inferiorly through the pubic symphysis. Intravenous and oral contrast not utilized. Findings: Bowel wall thickening and diverticuli are seen within the sigmoid colon. Surrounding inflammatory change is noted around the sigmoid colon compatible with moderately severe diverticulitis. Other findings: Visualized lung bases show nothing acute. Liver shows mild fatty infiltration. Spleen appears within normal limits. Adrenal glands show no nodule. Pancreas is within normal limits. Mild increased density within the gallbladder is seen possibly due to gallstones. Aorta shows no aneurysm. Kidneys show a cyst off the left kidney measuring 3.0 cm. Small nonobstructing calculus is noted within the inferior right kidney. No ureteral dilatation is seen. Appendix is seen which is normal. No pelvic mass or adenopathy is appreciated. Bone window settings were reviewed which shows no acute osseous finding. Small fat-containing umbilical hernia is noted. Impression: 1. Findings compatible with moderately severe diverticulitis within the sigmoid colon. 2. Fatty infiltration within the liver and other findings believed to be nonacute as noted above. Diagnostic code #3 This report was dictated in MDT
[2020-05-01] MEDS ORDERED: Ciprofloxacin 500 MG Tab PO ONE (12:52)
[2020-05-01] MEDS ORDERED: metroNIDAZOLE/Normal Saline 500 MG in Premix Bag 1 BAG IV ONE (12:52)
[2020-05-01 14:48] VITALS: BP 144/87; PULSE 89
== END 2020-05-01 14:48 | disposition home or self-care (01) ==
LOC: MW.ED 10:39
DX: K57.32 Diverticulitis of large intestine without perforation or abscess without bleeding (principal); E66.9 Obesity, unspecified; Z68.39 Body mass index [BMI] 39.0-39.9, adult
CPT/HCPCS: 51798; 74176; 80053; 81001; 85025; 96365; 96375; 99284; A9270; J1885; J2405; J3490; J7030

== ENCOUNTER 2020-09-15 02:07 | Emergency (ER) | payer OTHER, BC ==
--- NOTE | 2020-09-15 02:27 | EDM.PDOC ---
ED HPI GENERAL MEDICAL PROBLEM - General Chief Complaint: Lower Extremity Injury/Pain Stated Complaint: RIGHT KNEE INJURY Time Seen by Provider: 09/15/20 02:26 - History of Present Illness INITIAL COMMENTS - FREE TEXT/NARRATIVE: History of present illness: [] This healthy young man has no medications reports that he fell directly onto his left knee. It feels like it split apart. He cannot walk on the knee after it happened. His employer brought him in in a wheelchair. Patient has significant pain is worse with attempts at range of motion. The pain is worse when he tries to extend the knee. He denies any other injury. He tripped over a wire and had a mechanical fall with no syncope. The pain is severe and sharp. Review of systems: As per history of present illness and below otherwise all systems reviewed and n egative. Past medical history: As per history of present illness and as reviewed below otherwise noncontributory. Surgical history: As per history of present illness and as reviewed below otherwise noncontributory. Social history: No reported history of drug or alcohol abuse. Family history: As per history of present illness and as reviewed below otherwise noncontributory. Physical exam: Constitutional - well developed, well-nourished and in no acute distress HEENT - normocephalic, no evidence of trauma - external nose and mouth normal - no mass in neck and no JVD - mucosae moist EYES - full EOM, PERRL, no icterus - no evidence of inflammation, injection, or drainage Respiratory - no respiratory distress, equal bilateral expansion, lungs clear to auscultation and no abnormal lung sounds Cardiovascular - Regular Rhythm with S1 and S2 appreciated and no murmur, gallop or rub. GI - abdomen soft without distension or organomegaly - normal bowel sounds - no guard or rebound Musculoskeletal the patient has tenderness in the anterior knee especially about the patella. He is unable to lift his ankle off the bed. I can see the quadriceps flex. Do not see gross separation of the components of the patella when we do that. No gross deformity of long bones or joints - no tenderness, swelling or edema Neurologic - Alert and oriented times four - CN II-XII grossly intact - motor sensory and coordination symmetrically normal Psychiatric - appropriate mood and affect with normal thought content Hematologic - No petechiae or purpura - mucosa appropriate color and sclera not pale - normal nail bed color and refill Integument - no rash or evidence of trauma - normal turgor Diagnostics: [] Therapeutics: [] Impression: [] Plan: [] Definitive disposition and diagnosis as appropriate pending reevaluation and review of above. left knee Pain Score (Numeric/FACES): 8 - Related Data Allergies Allergy/AdvReac Type Severity Reaction Status Date / Time No Known Allergies Allergy Verified 09/15/20 02:24 Home Meds: Home Meds . [No Known Home Meds] 09/15/20 [History] Past Medical History - Past Health History Medical/Surgical History: Denies Medical/Surgical History HEENT History: Reports: None Cardiovascular History: Reports: None Respiratory History: Reports: None Gastrointestinal History: Reports: Diverticulosis, None Other Gastrointestinal History: Diverticulitis Genitourinary History: Reports: None Musculoskeletal History: Reports: Other (See Below) Other Musculoskeletal History: R shoulder traumatic dislocation Neurological History: Reports: None Psychiatric History: Reports: None Endocrine/Metabolic History: Reports: None, Obesity/BMI 30+ Hematologic History: Reports: None Immunologic History: Reports: None Oncologic (Cancer) History: Reports: None Dermatologic History: Reports: None - Infectious Disease History Infectious Disease History: Reports: None - Past Surgical History GI Surgical History: Reports: None Musculoskeletal Surgical History: Reports: Other (See Below) Social & Family History - Family History Family Medical History: No Pertinent Family History - Caffeine Use Caffeine Use: Reports: Coffee, Energy Drinks Caffeine Use Comment: 1 cup "every couple of days" - Living Situation & Occupation Occupation: Employed Review of Systems - Review of Systems Review Of Systems: Comprehensive ROS is negative, except as noted in HPI. ED EXAM, GENERAL - Physical Exam Exam: See Below Free Text/Narrative:: The physical exam is in the HPI Course - Vital Signs Text/Narrative:: X-ray reveals the patella is high riding but not fracture this is most consistent with a complete disruption of the patellar tendon The patient's pain was quite tolerable when he was not trying to move the leg. He will be discharged in an immobilizer with crutches and referred to Dr. Dion Wolf to follow-up in the office to arrange surgery Last Recorded V/S: Last Vital Signs Temp 37.1 C 09/15/20 02:20 Pulse 88 09/15/20 02:20 Resp 18 09/15/20 02:20 BP 171/111 H 09/15/20 02:20 Pulse Ox 97 09/15/20 02:20 - Orders/Labs/Meds Orders: Active Orders 24 hr Category Date Time Status Knee 3V Lt [CR] Stat Exams 09/15/20 02:24 Taken DME for Discharge [COMM] Stat Oth 09/15/20 02:36 Ordered DME for Discharge [COMM] Stat Oth 09/15/20 02:38 Ordered Departure - Departure Time of Disposition: 02:44 Disposition: Home, Self-Care 01 Condition: Good Clinical Impression: Patellar tendon rupture - Discharge Information Instructions: Patellar Fracture, Adult Referrals: PCP,None [Primary Care Provider] - Del Wolf MD [Physician] - Forms: ED Department Discharge Additional Instructions: Your instructions for patellar fracture are perfectly appropriate. The actual diagnosis is patellar tendon disruption in the patella itself is intact. Call Dr. Wolf and make an appointment as soon as possible. Your work note is for [address] Wolf will best be able to tell you how long you will be out and whether you need to have surgery tomorrow or early next week. [facility] Professional [address], [address] [place] [address] The following information is given to patients seen in the emergency department who are being discharged to home. This information is to outline your options for follow-up care. We provide all patients seen in our emergency department with a follow-up referral. The need for follow-up, as well as the timing and circumstances, are variable depending upon the specifics of your emergency department visit. If you don't have a primary care physician on staff, we will provide you with a referral. We always advise you to contact your personal physician following an emergency department visit to inform them of the circumstance of the visit and for follow-up with them and/or the need for any referrals to a consulting specialist. The emergency department will also refer you to a specialist when appropriate. This referral assures that you have the opportunity for follow-up care with a specialist. All of these measure are taken in an effort to provide you with optimal care, which includes your follow-up. Under all circumstances we always encourage you to contact your private physician who remains a resource for coordinating your care. When calling for follow-up care, please make the office aware that this follow-up is from your recent emergency room visit. If for any reason you are refused follow-up, please contact the [facility] Emergency Departmen t at and asked to speak to the emergency department charge nurse. Sepsis Event Note (ED) - Focused Exam Vital Signs: Vital Signs Temp Pulse Resp BP Pulse Ox 09/15/20 02:20 37.1 C 88 18 171/111 H 97 - My Orders Last 24 Hours: My Active Orders 09/15/20 02:24 Knee 3V Lt [CR] Stat 09/15/20 02:36 DME for Discharge [COMM] Stat 09/15/20 02:38 DME for Discharge [COMM] Stat - Assessment/Plan Last 24 Hours: My Active Orders 09/15/20 02:24 Knee 3V Lt [CR] Stat 09/15/20 02:36 DME for Discharge [COMM] Stat 09/15/20 02:38 DME for Discharge [COMM] Stat
--- NOTE | 2020-09-15 03:00 | CR ---
Indication: Direct trauma to anterior knee Technique: Three views left Comparison: None Findings: Bones: Alignment is normal. No fractures or bone lesions. Joint spaces: Unremarkable. Soft tissues: Mild infrapatellar soft tissue swelling. Impression: No acute osseous abnormality. Mild infrapatellar soft tissue swelling. Dictated by Diamante Norman MD @ Sep 15 2020 2:59AM Signed by Dr. Diamante Norman @ Sep 15 2020 2:59AM
[2020-09-15 03:19] VITALS: BP 157/97; PULSE 100
== END 2020-09-15 03:19 | disposition home or self-care (01) ==
LOC: MW.ED 02:07
DX: S86.812A Strain of other muscle(s) and tendon(s) at lower leg level, left leg, initial encounter (principal); W19.XXXA Unspecified fall, initial encounter
CPT/HCPCS: 73562-26-LT; 73562-LT; 99283; 99283-25